=== PATIENT | female | born 1950 | race Caucasian/White ===

== ENCOUNTER → 2018-06-01 12:51 | Outpatient (CLI) | payer MEDICARE, MEDICAID, SELFPAY ==
--- NOTE | 2018-06-01 12:54 | FL_ITS ---
FL barium swallow modified Ordering Physician: Deric Vu Patient Age: 67 years: Female HISTORY: ITS.REASON: DIFFICULTY SWALLOWING TECHNIQUE: FL barium swallow modified INDICATION: ITS.REASON: DIFFICULTY SWALLOWING dysphagia Aspiration history. On nectar consistency diet currently TECHNIQUE & FINDINGS: Study performed conjunction with these pathologist Erendira dent. 1 minute 58 seconds fluoroscopy Patient study the lateral projection with video esophagram recording. Various barium consistencies utilized to study swallowing mechanism. . Thin liquid by cup and straw. Pureed food. Ground food. Pudding. Mixed density. Meat Clerk film revealed: Generous anterior marginal osteophytes throughout the C-spine from C3 through C7. But these may impinge upon the esophagus and could contribute to symptoms or present... Thin barium from cup, and with straw: No aspiration observed good strength the swallowing mechanism .. Noted piriform sinus retention noted with initial bolus of thin liquids via open cup.. This seemed to improve subsequently IMPRESSION: Slight premature spillage into the laryngeal vestibule but no aspiration. Only slight initial retention of thin liquid at piriform sinuses and initially noted, but this improved subsequent No jordi aspiration.. Please see review recommendations from speech pathology Speech pathologist recommended Thin liquid should be given by straw Mixed consistencies are not recommended
== END ==
PROVIDERS: Family Provider Internal Medicine Adolescent Medicine; PCP Family Medicine; Visit Provider Family Medicine
DX: R13.10 Dysphagia, unspecified (principal)
CPT/HCPCS: 70371; 92611

== ENCOUNTER → 2018-09-23 13:09 | Outpatient (CLI) | payer MEDICARE, MEDICAID, SELFPAY ==
--- NOTE | 2018-09-23 13:14 | XR_ITS ---
XR knee LT 3V HISTORY: Pain ITS.REASON: 4 views weightbearing ORDERING PHYSICIAN: Pardeep Henderson MD PATIENT AGE: 67 years COMPARISON: None FINDINGS: The patient was unable to do weightbearing views. No fracture or dislocation. No lytic or blastic change. Normal mineralization. No significant arthritic changes evident. No other significant findings IMPRESSION: Negative Knee
--- NOTE | 2018-09-23 13:14 | XR_ITS ---
XR knee RT 3V HISTORY: Knee pain ITS.REASON: 4 views weightbearing ORDERING PHYSICIAN: Pardeep Henderson MD PATIENT AGE: 67 years COMPARISON: None FINDINGS: Patient was unable to do weightbearing views No fracture or dislocation. No lytic or blastic change. Normal mineralization. No significant arthritic changes evident. There is minimal chondrocalcinosis of the medial and lateral compartment. IMPRESSION: Minimal chondrocalcinosis otherwise negative right knee
--- NOTE | 2018-09-23 16:26 | XR_ITS ---
XR clavicle RT HISTORY: Follow-up fracture ITS.REASON: right clavicle fracture ORDERING PHYSICIAN: Pardeep Henderson MD PATIENT AGE: 67 years COMPARISON: 08/26/2018 FINDINGS: There is a healing fracture involving the distal aspect of the clavicle. There is minimal superior displacement of the distal fracture fragment x 4 mm which is slightly increased since the previous exam previously measuring 2 mm. Fracture line is less well delineated which may be due to early healing. There are mild osteoarthritic changes of the right glenohumeral joint. IMPRESSION: Healing distal clavicular fracture with slight increased superior displacement of the distal fracture fragment
== END ==
PROVIDERS: PCP Family Medicine; Visit Provider Orthopaedic Surgery
DX: S42.034A Nondisplaced fracture of lateral end of right clavicle, initial encounter for closed fracture (principal); M25.562 Pain in left knee; M25.561 Pain in right knee
CPT/HCPCS: 73000; 73562

== ENCOUNTER → 2018-10-15 10:00 | Outpatient (CLI) | payer MEDICARE, MEDICAID, SELFPAY ==
--- NOTE | 2018-10-15 10:04 | XR_ITS ---
XR clavicle RT HISTORY: Follow-up fracture ITS.REASON: right clavicle fracture / xrays out of splint ! ORDERING PHYSICIAN: Pardeep Henderson MD PATIENT AGE: 67 years COMPARISON: 09/23/2018 FINDINGS: Comminuted minimally displaced fracture once again noted involving the distal aspect of the clavicle with no significant change in the good alignment and minimal displacement. There does appear to be some increasing callus formation. Incidental note made of subacromial stenosis and osteoarthritis of the glenohumeral joint. IMPRESSION: Healing distal clavicle fracture with good alignment
== END ==
PROVIDERS: PCP Family Medicine; Visit Provider Orthopaedic Surgery
DX: S42.001A Fracture of unspecified part of right clavicle, initial encounter for closed fracture (principal)
CPT/HCPCS: 73000

== ENCOUNTER → 2018-11-25 09:33 | Outpatient (CLI) | payer MEDICARE, MEDICAID, SELFPAY ==
--- NOTE | 2018-11-25 09:39 | XR_ITS ---
XR clavicle RT HISTORY: Follow-up fracture ITS.REASON: follow up right clavicle fracture ORDERING PHYSICIAN: Pardeep Henderson MD PATIENT AGE: 67 years COMPARISON: 10/15/2018 FINDINGS: Mildly displaced fracture once again noted involving the distal aspect of the clavicle with distraction of the fracture fragments x 7 mm. This is slightly increased when compared to the previous exam. There is some calcification inferior to the fracture site. There remains good alignment. IMPRESSION: Slight increased distraction of the distal fracture fragment of the clavicle
== END ==
PROVIDERS: PCP Family Medicine; Visit Provider Orthopaedic Surgery
DX: S42.001A Fracture of unspecified part of right clavicle, initial encounter for closed fracture (principal)
CPT/HCPCS: 73000

== ENCOUNTER → 2019-03-30 08:48 | Outpatient (CLI) | payer MEDICARE, MEDICAID, SELFPAY ==
--- NOTE | 2019-03-30 08:54 | XR_ITS ---
XR knee LT 2V HISTORY: Standing AP and lateral views are obtained and compared to 09/23/2018 ORDERING PHYSICIAN: Pardeep Henderson MD PATIENT AGE: 68 years COMPARISON: 09/23/2018 FINDINGS: Minimal osteoarthritic changes are present at the medial compartment with minimal chondrocalcinosis medially. No fracture or dislocation. IMPRESSION: Minimal osteoarthritis with chondrocalcinosis of the medial compartment
--- NOTE | 2019-03-30 08:54 | XR_ITS ---
XR knee RT 2V HISTORY: Standing AP and lateral views ORDERING PHYSICIAN: Pardeep Henderson MD PATIENT AGE: 68 years COMPARISON: 09/23/2018 FINDINGS: Mild osteoarthritic changes are present at the medial compartment. There is chondrocalcinosis of the medial and lateral compartment. No fracture or dislocation. No significant change. IMPRESSION: Mild osteoarthritis with chondrocalcinosis
== END ==
PROVIDERS: PCP Family Medicine; Visit Provider Orthopaedic Surgery
DX: M17.11 Unilateral primary osteoarthritis, right knee (principal); M17.12 Unilateral primary osteoarthritis, left knee
CPT/HCPCS: 73560

== ENCOUNTER 2019-05-06 13:34 | Inpatient (IN) ==
--- NOTE | 2019-05-06 14:46 | Emergency Department Note ---
ED Disposition Clinical Impression: Small bowel obstruction, partial Disposition: Admitted As Inpatient Condition on Discharge: Serious Referrals: Provider,Referral, [Primary Care Provider] - Time of Disposition: 17:17 - Critical Care Critical Care Time: No Attestation: On 05/06/19, the high probability of a clinically significant, sudden or life threatening deterioration of the following system(s) required my full and direct attention, intervention and personal management. The time I documented below is in addition to time spent performing reported procedures but includes the following listed in this critical care notation. Medical Decision Making - Medical Records Medical records reviewed: Yes: I reviewed the patient's medical records. - Wong Inquiry Pt receiving controlled substance: No Wong was queried for this patient: No Vital Signs: 05/06/19 13:37 05/06/19 16:04 05/06/19 16:44 Temperature 98.0 F Temperature Source Oral Pulse Rate [Right Brachial] 81 78 73 Respiratory Rate 18 18 Blood Pressure [Right Arm] 156/74 H 91/51 L 90/53 L Blood Pressure Mean [Right Arm] 101 64 65 Blood Pressure Source [Right Arm] Automatic Cuff Automatic Cuff Blood Pressure Position [Right Arm] Sitting Sitting 02 Sat by Pulse Oximetry 100 88 L 98 Oxygen Delivery Method Room Air Room Air - Lab Data Lab results reviewed: Yes: I reviewed the patient's lab results. Lab Results 05/06/19 14:15: Sodium 144, Potassium 4.9, Chloride 101, Carbon Dioxide 32, Anion Gap 15.9 H, BUN 47 H, Creatinine 2.54 H, Estimated Creat Clear 27, Estimated GFR 19 L*, Est GFR ( Amer) 23 L, Glucose 126 H, Calcium 8.9, Total Bilirubin 0.4, AST 22, ALT 35, Alkaline Phosphatase 116, Troponin I < 0.02, Total Protein 7.5, Albumin 3.6, Globulin 3.9 H, Albumin/Globulin Ratio 0.9 L 05/06/19 14:49: WBC 12.8 H, RBC 4.04 L, Hgb 11.5 L, Hct 35.7 L, MCV 88.4, MCH 28.4, MCHC 32.1, RDW 12.7, Plt Count 342, MPV 7.1 L, Neut % (Auto) 85.3 H, Lymph % (Auto) 7.5 L, [place] % (Auto) 4.9, Eos % (Auto) 1.9, Baso % (Auto) 0.3, Neut # (Auto) 10.9 H, Lymph # (Auto) 1.0, [place] # (Auto) 0.6, Eos # (Auto) 0.2, Baso # (Auto) 0.0, Total Counted 100, Neutrophils % (Manual) 83 H, Band Neutrophils % 1.0, Lymphocytes % (Manual) 9 L, Atypical Lymphs % 1.0, Monocytes % (Manual) 4, Eosinophils % (Manual) 2, Platelet Estimate Normal, RBC Morphology Normal 05/06/19 15:15: Lactate 1.2 Result diagrams: 05/06/19 14:49 05/06/19 14:15 Orders (Tests/Meds): ED MEDICATIONS Generic Name Dose Route Start Last Admin Trade Name Freq PRN Reason Stop Dose Admin Sodium Chloride 1,000 mls @ 999 mls/hr 05/06/19 16:15 05/06/19 16:37 Sod Chlor 0.9% 1000ml Bag IV 05/06/19 17:15 999 mls/hr .Q1H1M YING Administration Discontinued Medications Generic Name Dose Route Start Last Admin Trade Name Freq PRN Reason Stop Dose Admin Ketorolac Tromethamine 30 mg 05/06/19 14:51 05/06/19 15:38 Toradol 30mg/Ml Vial IV 05/06/19 14:52 30 mg ONCE ONE Administration Ondansetron HCl 4 mg 05/06/19 14:51 05/06/19 15:38 Zofran 4mg/2ml Vial IV 05/06/19 14:52 4 mg ONCE ONE Administration ORDERS Category Date Time Status UA [Urinalysis and Microscopic] Stat Lab 05/06/19 13:38 Ordered - Physician Consults Physician Consulted: alanis Time: 17:15 Reason -: Admission, Pt condition Nausea/Vomiting/Diarrhea HPI - General Chief complaint: Nausea/Vomiting/Diarrhea Stated complaint: N/v Time Seen by Provider: 05/06/19 14:33 Mode of Arrival: EMS Source of Information: Patient, EMS Limitations: No Limitations Description of Symptoms (Recalled from ER Triage Doc. by RN): nausea/vomiting, flank pain - History of Present Illness HPI Narrative: n/v/greenish vomiting. Patient is communicative but it is very limited secondary to stroke - Related Data Home Medications Medication Instructions Recorded Confirmed Amlodipine Besylate [Amlodipine 10 mg PO DAILY 07/28/18 03/30/19 10mg Tab] Atorvastatin Calcium [Atorvastatin 40 mg PO DAILY 07/28/18 03/30/19 40mg Tab] Docusate Sodium [Colace] 100 mg PO DAILY 07/28/18 03/30/19 Furosemide [Furosemide 20mg Tab] 20 mg PO DAILY 07/28/18 03/30/19 Gabapentin [Neurontin 800mg Tab] 800 mg PO QID 07/28/18 03/30/19 Lisinopril [Lisinopril 10mg Tab] 10 mg PO DAILY 07/28/18 03/30/19 Loratadine [Claritin] 10 mg PO DAILY 07/28/18 03/30/19 Omeprazole [Omeprazole 20mg 20 mg PO DAILY 07/28/18 03/30/19 Capsule] PHENobarbital [PHENobarbital 64.8 mg PO DAILY 07/28/18 03/30/19 32.4mg Tablet] Sennosides [Senna] 8.6 mg PO DAILY 07/28/18 03/30/19 Sertraline HCl [Zoloft] 100 mg PO DAILY 07/28/18 03/30/19 carBAMazepine [carBAMazepine 200mg 400 mg PO BID 07/28/18 03/30/19 Tablet] levETIRAcetam [Levetiracetam] 1,000 mg PO BID 07/28/18 03/30/19 Acetaminophen [Tylenol 500mg 500 mg PO QID PRN 08/26/18 03/30/19 tablet] Ibuprofen [Motrin 600mg 600 mg PO BID 08/26/18 03/30/19 Tablet] Icosapent Ethyl [Vascepa] 2 cap PO BID 08/26/18 03/30/19 Lactulose [Lactulose 20gm/30ml 20 gm PO DAILYP PRN 08/26/18 03/30/19 Oral Soln] Allergies Allergy/AdvReac Type Severity Reaction Status Date / Time LATEX Allergy Mild Uncoded 03/30/19 09:39 BANANAS (FOOD) Allergy Unknown Uncoded 03/30/19 09:39 CHOCOLATE Allergy Unknown Uncoded 03/30/19 09:39 [facility] History - Hepatitis A Screen Drug use history?: No High risk sexual behaviors?: No History of sexually transmitted infection?: No Currently employed?: No Childcare worker?: No Do you have indoor plumbing?: Yes Do you have electricity?: Yes Attestation statement:: This patient has been screened for Hepatitis A risk factors. I have reviewed the patient's past medical history: Yes Medical History: Reports:: Anxiety, Chronic Obstructive Pulmonary Disease (COPD), Hypertension Other Surgeries: Yes: Other Comment: Unable to determine. - Social History Educational Level: Completed High School Smoking Status: Current every day smoker Alcohol Intake: never Occupational Status: employed, unemployed, retired, disabled Housing: [facility] Household Members: none, other - Psychiatric History Expresses thoughts of harming self/others: None Suicide Plan Description: No Plan Pschychiatric History:: Reports:: Anxiety Family Hx:: No significant family history ROS Obtained: Yes All systems reviewed & no additional complaints, Yes unobtainable due to mental condition - Constitutional Constitutional: Denies fever(s) - Eyes Eyes: Denies blurry vision, Denies change in vision - ENT Ears, Nose, Mouth, and Throat: Denies sinus pain, Denies sinus pressure, Denies sore throat - Cardiovascular Cardiovascular: Denies chest pain - Respiratory Respiratory: No cough, No dyspnea, No dyspnea on exertion - Gastrointestinal Gastrointestingal: Reports: abdominal pain, nausea, vomiting. Denies: diarrhea, vomiting blood - Musculoskeletal Musculoskeletal: Denies joint swelling - Integumentary/Breasts Skin/Breast: Denies rash, Denies skin pain - Neurologic Neurologic: Denies tingling/numbness/burning sensations, Denies sensory deficit, Denies syncope, Denies weakness Physical Exam - General General appearance: alert - Head Head exam: atraumatic, normocephalic, normal inspection - Eye Eye exam: Present: normal appearance, PERRL, EOMI - Neck Neck exam: Present: normal inspection, full ROM, trachea midline. Absent: menin gismus, lymphadenopathy - Chest Chest inspection: Present: normal inspection, symmetric chest wall rise. Absent: tenderness - Respiratory Respiratory exam: Present: normal lung sounds bilaterally. Absent: respiratory distress - Cardiovascular Cardiovascular exam: Present: regular rate, normal rhythm. Absent: JVD - Abdominal Exam Abdominal exam: Present: soft, distention, tenderness, mass. Absent: guarding Abdominal tenderness: Present: suprapubic Comment: ? hernia ? incarcerated - Extremities Exam Extremities exam: Present: normal inspection, full ROM, normal capillary refill. Absent: calf tenderness - Back Exam Back exam: Present: normal inspection. Absent: tenderness - Neurological Exam Neurological exam: Present: alert. Absent: oriented X3 - Psychiatric Psychiatric exam: Present: normal affect, normal mood - Skin Skin exam: Present: warm, dry, intact, normal color
[2019-05-06 14:52] LABS: Alanine Aminotransferase 35 U/L (12-78); Albumin Level 3.6 gm/dL (3.4-5.0); Albumin/Globulin Ratio 0.9 (1.1-1.8); Alkaline Phosphatase 116 U/L (46-116); Anion Gap 15.9 mEq/L (5-15); Aspartate Amino Transferase 22 U/L (15-37); Bilirubin,Total 0.4 mg/dL (0.2-1.0); Blood Urea Nitrogen 47 mg/dL (7-18); Calcium 8.9 mg/dL (8.5-10.1); Carbon Dioxide 32 mmol/L (21.0-32.0); Chloride 101 mmol/L (98-107); Globulin 3.9 gm/dl (1.3-3.2); Glucose 126 mg/dL (74-106); Sodium 144 mmol/L (136-145); Total Protein,Serum 7.5 gm/dL (6.4-8.2)
[2019-05-06 15:00] LABS: Basophils % 0.3 % (0.1-2.0); Eosinophils # 0.2 K/mm3 (0.0-0.4); Eosinophils % 1.9 % (0.1-12.0); Hematocrit 35.7 % (37.0-47.0); Hemoglobin 11.5 g/dL (12.2-16.2); Lymphocytes % 7.5 % (10-50); Mean Corpuscular HGB Conc 32.1 g/dL (31.8-35.4); Mean Corpuscular Volume 88.4 fl (81-99); Mean Platelet Volume 7.1 fl (7.4-10.4); Monocytes # 0.6 K/mm3 (0.1-1.0); Monocytes % 4.9 % (1.7-9.3); Neutrophils # 10.9 K/mm3 (1.8-7.8); Neutrophils % 85.3 % (37.0-80.0); Platelet Count 342 K/mm3 (142-424); Red Blood Count 4.04 M/mm3 (4.20-5.40); Red Cell Distribution Width 12.7 % (11.5-17.5); White Blood Count 12.8 K/mm3 (4.8-10.8)
[2019-05-06 15:14] LABS: Eosinophils % 2 % (0-3); Lymphocytes % 9 % (10-50); Monocytes % 4 % (2-9); Neutrophils % 83 % (42-76); RBC Morphology Normal; Total Cells Counted 100
[2019-05-06 18:04] LABS: Appearance,Urine CLEAR (Clear); Bilirubin,Urine Negative (Negative); Blood, Urine Negative (Negative); Color,Urine YELLOW (Yellow); Glucose,Urine (UA) Negative (Negative); Ketones,Urine TRACE (Negative); Leukocyte Esterase,Urine Negative (Negative); Microscopic, Urine URINE MICROSCOPIC (MICROSCOPIC); PH,Urine 5.5 (5.0-8.5); Protein,Urine Negative (Negative); Urobilinogen,Urine 0.2 EU/dl (0.2)
[2019-05-06 18:28] LABS: Amorphous Sediment,Urine Trace /lpf; Bacteria,Urine Trace /lpf
--- NOTE | 2019-05-06 19:11 | Consult Report ---
*Admission Date: 05/06/19 *Reason for consult:: Bowel Obstruction *History of present illness: Patient is a 68-year-old white female with reported history of cerebral palsy, seizure disorder, cognitive deficit who is a longtime resident of [facility]. She was transported to the emergency department this afternoon due to vomiting for a couple of days. Evaluation in the emergency department included noncontrast CT scan which revealed findings consistent with possible bowel obstruction. This is characterized by massively distended stomach and duodenum with appreciable dilatation of proximal small bowel with possible transition point in the mid small bowel in the left lower quadrant. She was admitted for inpatient management and surgical consultation. Review of Systems - Review of Systems Review of systems:: unable to obtain - *Neurologic Denies tingling/numbness/burning sensations, Denies sensory deficit, Denies fainting, Denies weakness [facility] History Medical History: Reports:: Anxiety, Chronic Obstructive Pulmonary Disease (COPD), Congenital Heart Disease, Hyperlipidemia, Hypertension *Have you ever received a pneumonia vaccine?: No (unable to find in medical record) *Have you received a flu vaccine this season?: No (unable to find in medical record) Other Surgeries: Yes: Other - *Social History Educational Level: Completed High School Smoking Status: Never smoker Alcohol Intake: never *Occupational Status:: employed, unemployed, retired, disabled Housing: [facility] Household Members: none, other *Travel in the last 8 weeks: None - Psychiatric History Expresses thoughts of harming self/others: None Suicide Plan Description: No Plan Pschychiatric History:: Reports:: Anxiety Family Hx:: Unable to obtain Meds Home Medications Medication Instructions Recorded Confirmed Type Amlodipine Besylate [Amlodipine 10 mg PO DAILY 07/28/18 05/06/19 History 10mg Tab] Atorvastatin Calcium [Atorvastatin 40 mg PO DAILY 07/28/18 05/06/19 History 40mg Tab] Docusate Sodium [Colace] 100 mg PO DAILY 07/28/18 05/06/19 History Furosemide [Furosemide 20mg Tab] 20 mg PO DAILY 07/28/18 05/06/19 History Gabapentin [Neurontin 800mg Tab] 800 mg PO QID 07/28/18 05/06/19 History Lisinopril [Lisinopril 10mg Tab] 10 mg PO DAILY 07/28/18 05/06/19 History Loratadine [Claritin] 10 mg PO DAILY 07/28/18 05/06/19 History Omeprazole [Omeprazole 20mg 20 mg PO QODHS 07/28/18 05/06/19 History Capsule] PHENobarbital [PHENobarbital 64.8 mg PO DAILY 07/28/18 05/06/19 History 32.4mg Tablet] Sennosides [Senna] 8.6 mg PO DAILY 07/28/18 05/06/19 History Sertraline HCl [Zoloft] 100 mg PO DAILY 07/28/18 05/06/19 History carBAMazepine [carBAMazepine 200mg 400 mg PO BID 07/28/18 05/06/19 History Tablet] levETIRAcetam [Levetiracetam] 1,000 mg PO BID 07/28/18 05/06/19 History Acetaminophen [Tylenol 500mg 500 mg PO QID PRN 08/26/18 05/06/19 History tablet] Ibuprofen [Motrin 600mg 600 mg PO BID 08/26/18 05/06/19 History Tablet] Lactulose [Lactulose 20gm/30ml 20 gm PO DAILYP PRN 08/26/18 05/06/19 History Oral Soln] Calcium Carbonate/Vitamin D3 1 each PO DAILY 05/06/19 05/06/19 History [Oyster Shell 250-Vit D3 125 Tb] Carboxymethyl/Gly/Poly80/Pf 1 each OP BID 05/06/19 05/06/19 History [Refresh Optive Advanced Drops] Icosapent Ethyl [Vascepa] 2 cap PO BID 05/06/19 05/06/19 History Miscellaneous [Unknown Home 1 tab PO CONSULT PHARMACY 05/06/19 05/06/19 History Medication] Propylene Glycol/Peg 400 [Systane 2 drp OP HS 05/06/19 05/06/19 History Gel Eye Drops] Sennosides [Senna] 8.6 mg PO DAILYP PRN 05/06/19 05/06/19 History hydrOXYzine HCl [Hydroxyzine HCl] 25 mg PO TID 05/06/19 05/06/19 History Allergies Allergy/AdvReac Type Severity Reaction Status Date / Time LATEX Allergy Mild Uncoded 03/30/19 09:39 BANANAS (FOOD) Allergy Unknown Uncoded 05/15/19 09:39 CHOCOLATE Allergy Unknown Uncoded 03/30/19 09:39 Exam Vital signs and Labs for Last 24 Hours: Temp Pulse Resp BP Pulse Ox 97.7 F 94 H 16 152/78 H 94 L 05/06/19 18:14 05/06/19 18:14 05/06/19 18:14 05/06/19 18:14 05/06/19 18:14 Laboratory Results - last 24 hr 05/06/19 14:15: Sodium 144, Potassium 4.9, Chloride 101, Carbon Dioxide 32, Anion Gap 15.9 H, BUN 47 H, Creatinine 2.54 H, Estimated Creat Clear 27, Estimated GFR 19 L*, Est GFR ( Amer) 23 L, Glucose 126 H, Calcium 8.9, Total Bilirubin 0.4, AST 22, ALT 35, Alkaline Phosphatase 116, Troponin I < 0.02, Total Protein 7.5, Albumin 3.6, Globulin 3.9 H, Albumin/Globulin Ratio 0.9 L 05/06/19 14:49: WBC 12.8 H, RBC 4.04 L, Hgb 11.5 L, Hct 35.7 L, MCV 88.4, MCH 28.4, MCHC 32.1, RDW 12.7, Plt Count 342, MPV 7.1 L, Neut % (Auto) 85.3 H, Lymph % (Auto) 7.5 L, [place] % (Auto) 4.9, Eos % (Auto) 1.9, Baso % (Auto) 0.3, Neut # (Auto) 10.9 H, Lymph # (Auto) 1.0, [place] # (Auto) 0.6, Eos # (Auto) 0.2, Baso # (Auto) 0.0, Total Counted 100, Neutrophils % (Manual) 83 H, Band Neutrophils % 1.0, Lymphocytes % (Manual) 9 L, Atypical Lymphs % 1.0, Monocytes % (Manual) 4, Eosinophils % (Manual) 2, Platelet Estimate Normal, RBC Morphology Normal 05/06/19 15:15: Lactate 1.2 05/06/19 17:53: Urine Color Yellow, Urine Appearance Clear, Urine pH 5.5, Ur Specific [place] 1.020, Urine Protein Negative, Urine Glucose (UA) Negative, Urine Ketones Trace, Urine Blood Negative, Urine Nitrate Negative, Urine Bilirubin Negative, Urine Urobilinogen 0.2, Ur Leukocyte Esterase Negative, Urine WBC 3-5, Ur Squamous Epith Cells 5-10, Amorphous Sediment Trace, Urine Bacteria Trace I & O for Last 24 hours: Intake & Output 05/04/19 05/05/19 05/06/19 05/07/19 11:59 11:59 11:59 11:59 Output Total 600 / 600 Balance -600 / -600 Weight 159 lb 4 oz - *Routine HEENT Exam Head: Present: normocephalic Eye: Present: EOMI, PERRL ENT: Present: mucous membranes moist - *Routine Neck Exam Present: supple. Absent: lymphadenopathy - *Routine Respiratory Exam Present: CTA bilaterally - *Routine Cardiovascular Exam Present: RRR - *Routine Abdominal Exam Present: soft, tenderness Comments: Mild distention, hypoactive bowel sounds, some diffuse tenderness. Very low limited midline well-healed scar. - *Routine Extremities Exam Absent: cyanosis, clubbing, edema - *Routine Skin Exam Present: pallor, warm. Absent: rash - *Routine Neurological Exam Present: alert - Detailed Eye Exam Eyelids: Left normal inspection Results - Labs 05/06/19 14:49 05/06/19 14:15 Laboratory Results - last 24 hr 05/06/19 14:15: Sodium 144, Potassium 4.9, Chloride 101, Carbon Dioxide 32, Anion Gap 15.9 H, BUN 47 H, Creatinine 2.54 H, Estimated Creat Clear 27, Estimated GFR 19 L*, Est GFR ( Amer) 23 L, Glucose 126 H, Calcium 8.9, Total Bilirubin 0.4, AST 22, ALT 35, Alkaline Phosphatase 116, Troponin I < 0.02, Total Protein 7.5, Albumin 3.6, Globulin 3.9 H, Albumin/Globulin Ratio 0.9 L 05/06/19 14:49: WBC 12.8 H, RBC 4.04 L, Hgb 11.5 L, Hct 35.7 L, MCV 88.4, MCH 28.4, MCHC 32.1, RDW 12.7, Plt Count 342, MPV 7.1 L, Neut % (Auto) 85.3 H, Lymph % (Auto) 7.5 L, [place] % (Auto) 4.9, Eos % (Auto) 1.9, Baso % (Auto) 0.3, Neut # (Auto) 10.9 H, Lymph # (Auto) 1.0, [place] # (Auto) 0.6, Eos # (Auto) 0.2, Baso # (Auto) 0.0, Total Counted 100, Neutrophils % (Manual) 83 H, Band Neutrophils % 1.0, Lymphocytes % (Manual) 9 L, Atypical Lymphs % 1.0, Monocytes % (Manual) 4, Eosinophils % (Manual) 2, Platelet Estimate Normal, RBC Morphology Normal 05/06/19 15:15: Lactate 1.2 05/06/19 17:53: Urine Color Yellow, Urine Appearance Clear, Urine pH 5.5, Ur Specific [place] 1.020, Urine Protein Negative, Urine Glucose (UA) Negative, Urine Ketones Trace, Urine Blood Negative, Urine Nitrate Negative, Urine Bilirubin Negative, Urine Urobilinogen 0.2, Ur Leukocyte Esterase Negative, Urine WBC 3-5, Ur Squamous Epith Cells 5-10, Amorphous Sediment Trace, Urine Bacteria Trace Assessment and Plan - Assessment and plan all Dx Assessment and Plan for all problems:: Patient has had nasogastric tube placed with appreciable amount of drainage, 600 cc over the last hour. Recommend continuation of nasogastric decompression. Replace fluids and electrolytes that she show signs of dehydration and renal insufficiency. Plan to check abdominal x-ray for confirmation of appropriate NG tube placement. Continue serial abdominal exams. Hopefully this improves with nonoperative management. Etiology unclear as the surgical history is unclear however she does have a low suprapubic scar, possibly from previous pelvic surgery. If her symptoms do not improve surgical intervention may be necessary.
[2019-05-07 06:40] LABS: Anion Gap 16.4 mEq/L (5-15)
[2019-05-07 06:47] LABS: Basophils % 0.4 % (0.1-2.0); Lymphocytes % 15.6 % (10-50); Red Cell Distribution Width 12.6 % (11.5-17.5)
[2019-05-07 06:50] LABS: Calcium 7.7 mg/dL (8.5-10.1); Eosinophils # 0.2 K/mm3 (0.0-0.4); Eosinophils % 2.6 % (0.1-12.0); Mean Corpuscular HGB Conc 32.4 g/dL (31.8-35.4); Mean Corpuscular Volume 88.5 fl (81-99); Mean Platelet Volume 8.2 fl (7.4-10.4); Monocytes # 0.5 K/mm3 (0.1-1.0); Monocytes % 8.1 % (1.7-9.3); Neutrophils # 4.8 K/mm3 (1.8-7.8); Neutrophils % 73.4 % (37.0-80.0); Platelet Count 102 K/mm3 (142-424); Red Blood Count 3.27 M/mm3 (4.20-5.40); White Blood Count 6.5 K/mm3 (4.8-10.8)
[2019-05-07 06:51] LABS: Hemoglobin 9.4 g/dL (12.2-16.2)
--- NOTE | 2019-05-07 07:47 | History & Physical Report ---
*Admission Date: 05/06/19 *Chief complaint: Vomiting, abdominal pain *History of present illness: Patient is a 68-year-old white female with reported history of cerebral palsy, seizure disorder, cognitive deficit who is a longtime resident of [facility]. She was transported to the emergency department this afternoon due to vomiting for a couple of days. Evaluation in the emergency department included noncontrast CT scan which revealed findings consistent with possible bowel obstruction. This is characterized by massively distended stomach and duodenum with appreciable dilatation of proximal small bowel with possible transition point in the mid small bowel in the left lower quadrant. She was admitted for inpatient management and surgical consultation. Although patient is nonverbal she is able to communicate somewhat with shaking of her head and nonverbal communication. This morning she indicates that her pain is still present. [facility] History I have reviewed the patient's past medical history: Yes Medical History: Reports:: Anxiety, Chronic Obstructive Pulmonary Disease (COPD), Congenital Heart Disease, Hyperlipidemia, Hypertension *Have you ever received a pneumonia vaccine?: No (unable to find in medical record) *Have you received a flu vaccine this season?: No (unable to find in medical record) Other Surgeries: Yes: Other - *Social History Educational Level: Completed High School Smoking Status: Never smoker Alcohol Intake: never *Occupational Status:: employed, unemployed, retired, disabled Housing: halfway Household Members: none, other *Travel in the last 8 weeks: None - Psychiatric History Expresses thoughts of harming self/others: None Suicide Plan Description: No Plan Pschychiatric History:: Reports:: Anxiety Family Hx:: Unable to obtain Review of Systems - Review of Systems Review of systems:: unable to obtain - *Neurologic Denies tingling/numbness/burning sensations, Denies sensory deficit, Denies fainting, Denies weakness Meds Home Medications Medication Instructions Recorded Confirmed Type Amlodipine Besylate [Amlodipine 10 mg PO DAILY 07/28/18 05/06/19 History 10mg Tab] Atorvastatin Calcium [Atorvastatin 40 mg PO DAILY 07/28/18 05/06/19 History 40mg Tab] Docusate Sodium [Colace] 100 mg PO DAILY 07/28/18 05/06/19 History Furosemide [Furosemide 20mg Tab] 20 mg PO DAILY 07/28/18 05/06/19 History Gabapentin [Neurontin 800mg Tab] 800 mg PO QID 07/28/18 05/06/19 History Lisinopril [Lisinopril 10mg Tab] 10 mg PO DAILY 07/28/18 05/06/19 History Loratadine [Claritin] 10 mg PO DAILY 07/28/18 05/06/19 History Omeprazole [Omeprazole 20mg 20 mg PO QODHS 07/28/18 05/06/19 History Capsule] PHENobarbital [PHENobarbital 64.8 mg PO DAILY 07/28/18 05/06/19 History 32.4mg Tablet] Sennosides [Senna] 8.6 mg PO DAILY 07/28/18 05/06/19 History Sertraline HCl [Zoloft] 100 mg PO DAILY 07/28/18 05/06/19 History carBAMazepine [carBAMazepine 200mg 400 mg PO BID 07/28/18 05/06/19 History Tablet] levETIRAcetam [Levetiracetam] 1,000 mg PO BID 07/28/18 05/06/19 History Acetaminophen [Tylenol 500mg 500 mg PO QID PRN 08/26/18 05/06/19 History tablet] Ibuprofen [Motrin 600mg 600 mg PO BID 08/26/18 05/06/19 History Tablet] Lactulose [Lactulose 20gm/30ml 20 gm PO DAILYP PRN 08/26/18 05/06/19 History Oral Soln] Calcium Carbonate/Vitamin D3 1 each PO DAILY 05/06/19 05/06/19 History [Oyster Shell 250-Vit D3 125 Tb] Carboxymethyl/Gly/Poly80/Pf 1 each OP BID 05/06/19 05/06/19 History [Refresh Optive Advanced Drops] Icosapent Ethyl [Vascepa] 2 cap PO BID 05/06/19 05/06/19 History Miscellaneous [Unknown Home 1 tab PO CONSULT PHARMACY 05/06/19 05/06/19 History Medication] Propylene Glycol/Peg 400 [Systane 2 drp OP HS 05/06/19 05/06/19 History Gel Eye Drops] Sennosides [Senna] 8.6 mg PO DAILYP PRN 05/06/19 05/06/19 History hydrOXYzine HCl [Hydroxyzine HCl] 25 mg PO TID 05/06/19 05/06/19 History Allergies Allergy/AdvReac Type Severity Reaction Status Date / Time LATEX Allergy Mild Uncoded 03/30/19 09:39 BANANAS (FOOD) Allergy Unknown Uncoded 03/30/19 09:39 CHOCOLATE Allergy Unknown Uncoded 03/30/19 09:39 Exam Vital signs and Labs for Last 24 Hours: Temp Pulse Resp BP Pulse Ox 98.5 F 85 20 105/49 L 92 L 05/07/19 04:35 05/07/19 04:35 05/07/19 04:35 05/07/19 04:35 05/07/19 04:35 Laboratory Results - last 24 hr 05/06/19 14:15: Sodium 144, Potassium 4.9, Chloride 101, Carbon Dioxide 32, Anion Gap 15.9 H, BUN 47 H, Creatinine 2.54 H, Estimated Creat Clear 27, Estimated GFR 19 L*, Est GFR ( Amer) 23 L, Glucose 126 H, Calcium 8.9, Total Bilirubin 0.4, AST 22, ALT 35, Alkaline Phosphatase 116, Troponin I < 0.02, Total Protein 7.5, Albumin 3.6, Globulin 3.9 H, Albumin/Globulin Ratio 0.9 L 05/06/19 14:49: WBC 12.8 H, RBC 4.04 L, Hgb 11.5 L, Hct 35.7 L, MCV 88.4, MCH 28.4, MCHC 32.1, RDW 12.7, Plt Count 342, MPV 7.1 L, Neut % (Auto) 85.3 H, Lymph % (Auto) 7.5 L, [place] % (Auto) 4.9, Eos % (Auto) 1.9, Baso % (Auto) 0.3, Neut # (Auto) 10.9 H, Lymph # (Auto) 1.0, [place] # (Auto) 0.6, Eos # (Auto) 0.2, Baso # (Auto) 0.0, Total Counted 100, Neutrophils % (Manual) 83 H, Band Neutrophils % 1.0, Lymphocytes % (Manual) 9 L, Atypical Lymphs % 1.0, Monocytes % (Manual) 4, Eosinophils % (Manual) 2, Platelet Estimate Normal, RBC Morphology Normal 05/06/19 15:15: Lactate 1.2 05/06/19 17:53: Urine Color Yellow, Urine Appearance Clear, Urine pH 5.5, Ur Specific [place] 1.020, Urine Protein Negative, Urine Glucose (UA) Negative, [place] Ketones Trace, Urine Blood Negative, Urine Nitrate Negative, Urine Bilirubin Negative, Urine Urobilinogen 0.2, Ur Leukocyte Esterase Negative, Urine WBC 3-5, Ur Squamous Epith Cells 5-10, Amorphous Sediment Trace, Urine Bacteria Trace 05/07/19 05:45: Sodium 144, Potassium 5.4 H, Chloride 106, Carbon Dioxide 27, Anion Gap 16.4 H, BUN 55 H, Creatinine 3.08 H D, Estimated Creat Clear 22, Estimated GFR 15 L*, Est GFR ( Amer) 18 L* D, Glucose 105, Calcium 7.7 L D 05/07/19 05:45: WBC 6.5 D, RBC 3.27 L, Hgb 9.4 L D, Hct 29.0 L, MCV 88.5, MCH 28.7, MCHC 32.4, RDW 12.6, Plt Count 102 L D, MPV 8.2, Neut % (Auto) 73.4, Lymph % (Auto) 15.6, [place] % (Auto) 8.1, Eos % (Auto) 2.6, Baso % (Auto) 0.4, Neut # (Auto) 4.8, Lymph # (Auto) 1.0, [place] # (Auto) 0.5, Eos # (Auto) 0.2, Baso # (Auto) 0.0 I & O for Last 24 hours: Intake & Output 05/04/19 05/05/19 05/06/19 05/07/19 11:59 11:59 11:59 11:59 Intake Total 1783 / 1783 Output Total 850 / 850 Balance 933 / 933 Weight 168 lb 4 oz Narrative: Patient appears chronically ill and has afflicted with contractures and hyperreflexia and rigidity from her well-established diagnosis of cerebral palsy. NG tube in the right nostril, draining dark gastric fluid. Lungs have fairly good air entry in the anterior sin and are clear, heart rate regular. Holosystolic faint murmur noted. Apparently she has a history of congenital heart disease-record deficit. Distal perfusion is poor but symmetric. Neurologic exam markedly abnormal. Abdominal exam is tender but no rebound noted. No guarding. Assessment and Plan (1) Acute kidney injury superimposed on chronic kidney disease Current visit: Yes Status: Acute Category: Medical Code(s): N17.9 - Acute kidney failure, unspecified; N18.9 - Chronic kidney disease, unspecified Creatinine elevation over admission noted, bolus of normal saline this morning in addition to her lactated Ringer's. Watch electrolytes carefully and repeat labs tomorrow. (2) Congenital heart disease Current visit: Yes Status: Acute Category: Medical Code(s): Q24.9 - Congenital malformation of heart, unspecified Record deficit. Murmur noted. Complicates all aspects of her care. (3) Seizure disorder Current visit: Yes Status: Acute Category: Medical Code(s): G40.909 - Epilepsy, unspecified, not intractable, without status epilepticus Currently no seizures here. We will continue her antiepileptic medications, seizure precautions in place. (4) Essential hypertension Current visit: Yes Status: Acute Category: Medical Code(s): I10 - Essential (primary) hypertension Holding antihypertensives now because of kidney injury. Watch blood pressure carefully (5) Bedbound Current visit: Yes Status: Acute Category: Medical Code(s): Z74.01 - Bed confinement status Complicates all aspects of her care (6) Small bowel obstruction, partial Current visit: Yes Status: Acute Category: Medical Code(s): K56.600 - Partial intestinal obstruction, unspecified as to cause Appreciate surgical consultation. Agree with conservative management.
--- NOTE | 2019-05-07 08:43 | Progress Note ---
Subjective Narrative: Patient wants the NG tube out. Still complains of some abdominal discomfort. Exam Vital signs and Labs for Last 24 Hours: Temp Pulse Resp BP Pulse Ox 98.9 F 82 18 138/57 L 96 05/07/19 08:00 05/07/19 08:00 05/07/19 08:00 05/07/19 08:00 05/07/19 08:00 Laboratory Results - last 24 hr 05/06/19 14:15: Sodium 144, Potassium 4.9, Chloride 101, Carbon Dioxide 32, Anion Gap 15.9 H, BUN 47 H, Creatinine 2.54 H, Estimated Creat Clear 27, Estimated GFR 19 L*, Est GFR ( Amer) 23 L, Glucose 126 H, Calcium 8.9, Total Bilirubin 0.4, AST 22, ALT 35, Alkaline Phosphatase 116, Troponin I < 0.02, Total Protein 7.5, Albumin 3.6, Globulin 3.9 H, Albumin/Globulin Ratio 0.9 L 05/06/19 14:49: WBC 12.8 H, RBC 4.04 L, Hgb 11.5 L, Hct 35.7 L, MCV 88.4, MCH 28.4, MCHC 32.1, RDW 12.7, Plt Count 342, MPV 7.1 L, Neut % (Auto) 85.3 H, Lymph % (Auto) 7.5 L, [place] % (Auto) 4.9, Eos % (Auto) 1.9, Baso % (Auto) 0.3, Neut # (Auto) 10.9 H, Lymph # (Auto) 1.0, [place] # (Auto) 0.6, Eos # (Auto) 0.2, Baso # (Auto) 0.0, Total Counted 100, Neutrophils % (Manual) 83 H, Band Neutrophils % 1.0, Lymphocytes % (Manual) 9 L, Atypical Lymphs % 1.0, Monocytes % (Manual) 4, Eosinophils % (Manual) 2, Platelet Estimate Normal, RBC Morphology Normal 05/06/19 15:15: Lactate 1.2 05/06/19 17:53: Urine Color Yellow, Urine Appearance Clear, Urine pH 5.5, Ur Specific [place] 1.020, Urine Protein Negative, Urine Glucose (UA) Negative, Urine Ketones Trace, Urine Blood Negative, Urine Nitrate Negative, Urine Bilirubin Negative, Urine Urobilinogen 0.2, Ur Leukocyte Esterase Negative, Urine WBC 3-5, Ur Squamous Epith Cells 5-10, Amorphous Sediment Trace, Urine Bacteria Trace 05/07/19 05:45: Sodium 144, Potassium 5.4 H, Chloride 106, Carbon Dioxide 27, Anion Gap 16.4 H, BUN 55 H, Creatinine 3.08 H D, Estimated Creat Clear 22, Estimated GFR 15 L*, Est GFR ( Amer) 18 L* D, Glucose 105, Calcium 7.7 L D 05/07/19 05:45: WBC 6.5 D, RBC 3.27 L, Hgb 9.4 L D, Hct 29.0 L, MCV 88.5, MCH 28.7, MCHC 32.4, RDW 12.6, Plt Count 102 L D, MPV 8.2, Neut % (Auto) 73.4, Lymph % (Auto) 15.6, [place] % (Auto) 8.1, Eos % (Auto) 2.6, Baso % (Auto) 0.4, Neut # (Auto) 4.8, Lymph # (Auto) 1.0, [place] # (Auto) 0.5, Eos # (Auto) 0.2, Baso # (Auto) 0.0 I & O for Last 24 hours: Intake & Output 05/04/19 05/05/19 05/06/19 05/07/19 11:59 11:59 11:59 11:59 Intake Total 1783 / 1783 Output Total 850 / 850 Balance 933 / 933 Weight 168 lb 4 oz - *Routine Abdominal Exam Comments: Soft, slightly distended, some tenderness in the lower abdomen without guarding or rebound. No appreciable bowel sounds. Progress Note: A&P (1) Acute kidney injury superimposed on chronic kidney disease Status: Acute Current Visit: Yes (2) Congenital heart disease Status: Acute Current Visit: Yes (3) Seizure disorder Status: Acute Current Visit: Yes (4) Essential hypertension Status: Acute Current Visit: Yes (5) Bedbound Status: Acute Current Visit: Yes (6) Small bowel obstruction, partial Status: Acute Current Visit: Yes Assessment and Plan for All Diagnoses:: Patient had approximately 1 L as of the nasogastric tube after placement. X-ray revealed this to barely be in the cardia of the stomach. It was advanced but then withdrawn somewhat. Will repeat acute abdominal series to assess bowel gas pattern and NG position. Laboratory reveals further increase of creatinine. Potassium 5.4.
--- NOTE | 2019-05-07 10:57 | Pharmacy Consult Notes ---
[facility] Pharmacy VTE Monitoring - Patient Demographics Admission date: 05/07/19 Report Date: 05/07/19 Time: 10:56 Allergies/Adverse Reactions: Patient Allergies LATEX Allergy (Mild, Uncoded 03/30/19 09:39) BANANAS (FOOD) Allergy (Unknown, Uncoded 03/30/19 09:39) CHOCOLATE Allergy (Unknown, Uncoded 03/30/19 09:39) Height: 1.7 m Weight: 76.317 kg Patient Problems: Current Active Problems (Updated 05/07/19 @ 07:47 by Hesham Florian MD) Small bowel obstruction, partial (Acute) Acute kidney injury superimposed on chronic kidney disease (Acute) Congenital heart disease (Acute) Seizure disorder (Acute) Essential hypertension (Acute) Bedbound (Acute) - VTE Risk Labs: VTE Related Lab Results Hgb 9.4 g/dL (12.2-16.2) L D 05/07/19 05:45 Hct 29.0 % (37.0-47.0) L 05/07/19 05:45 Plt Count 102 K/mm3 (142-424) L D 05/07/19 05:45 BUN 55 mg/dL (7-18) H 05/07/19 05:45 Creatinine 3.08 mg/dL (0.55-1.02) H D 05/07/19 05:45 Estimated Creat Clear 22 mL/min (50-200) 05/07/19 05:45 Was VTE Risk Assessment Performed: No VTE Score: 2 VTE Risk Level: Very Low Risk - Prophylaxis Types of VTE Prophylaxis: TEDS Knee High Location of Applied Device: Bilateral Lower Extremeties (MADELINE HOSE ORDERED)
--- NOTE | 2019-05-08 07:03 | Progress Note ---
Subjective Narrative: Patient is a bit more animated this morning. Strongly desiring nasogastric tube removed. Has drained about 600 cc oveR the past shift. Exam Vital signs and Labs for Last 24 Hours: Temp Pulse Resp BP Pulse Ox 99.0 F 90 18 160/69 H 95 05/08/19 04:00 05/08/19 04:00 05/08/19 04:00 05/08/19 04:00 05/08/19 04:00 I & O for Last 24 hours: Intake & Output 05/05/19 05/06/19 05/07/19 05/08/19 11:59 11:59 11:59 11:59 Intake Total 1783 / 1783 3248 / 3248 Output Total 850 / 850 1600 / 1600 Balance 933 / 933 1648 / 1648 Weight 168 lb 4 oz - *Routine Abdominal Exam Present: soft. Absent: tenderness Progress Note: A&P (1) Acute kidney injury superimposed on chronic kidney disease Status: Acute Current Visit: Yes (2) Congenital heart disease Status: Acute Current Visit: Yes (3) Seizure disorder Status: Acute Current Visit: Yes (4) Essential hypertension Status: Acute Current Visit: Yes (5) Bedbound Status: Acute Current Visit: Yes (6) Small bowel obstruction, partial Status: Acute Current Visit: Yes Assessment and Plan for All Diagnoses:: Patient has shown some clinical improvement on examination in mechanical bowel obstruction. Acute abdominal series yesterday showed improvement as well. Given the equivocal status of the bowel obstruction at this point I will plan to obtain a follow-up CT scan today with oral contrast for better delineation. If this shows continued improvement possibly may be able to discontinue the nasogastric tube. However, if there is persistent obstruction surgical intervention may be necessary.
[2019-05-08 08:18] LABS: Basophils % 0.4 % (0.1-2.0); Eosinophils # 0.2 K/mm3 (0.0-0.4); Hematocrit 30.4 % (37.0-47.0); Hemoglobin 9.7 g/dL (12.2-16.2); Lymphocytes # 1.2 K/mm3 (0.7-4.5); Lymphocytes % 15.6 % (10-50); Mean Corpuscular Volume 88.9 fl (81-99); Mean Platelet Volume 7.3 fl (7.4-10.4); Monocytes # 0.6 K/mm3 (0.1-1.0); Monocytes % 8.4 % (1.7-9.3); Neutrophils # 5.5 K/mm3 (1.8-7.8); Neutrophils % 72.6 % (37.0-80.0); Platelet Count 265 K/mm3 (142-424); Red Blood Count 3.42 M/mm3 (4.20-5.40); Red Cell Distribution Width 12.2 % (11.5-17.5); White Blood Count 7.5 K/mm3 (4.8-10.8)
--- NOTE | 2019-05-08 08:58 | Progress Note ---
Internal Medicine - PN: Subj *Date: 05/08/19 *Time: 08:57 Interval history: Patient is more animated, more able to converse with head shakes and nods. Exam Vital signs and Labs for Last 24 Hours: Temp Pulse Resp BP Pulse Ox 98.4 F 94 H 20 175/103 H 96 05/08/19 08:00 05/08/19 08:00 05/08/19 08:00 05/08/19 08:00 05/08/19 08:00 Laboratory Results - last 24 hr 05/08/19 08:05: WBC 7.5, RBC 3.42 L, Hgb 9.7 L, Hct 30.4 L, MCV 88.9, MCH 28.5, MCHC 32.0, RDW 12.2, Plt Count 265 D, MPV 7.3 L, Neut % (Auto) 72.6, Lymph % (Auto) 15.6, [place] % (Auto) 8.4, Eos % (Auto) 3.0, Baso % (Auto) 0.4, Neut # (Auto) 5.5, Lymph # (Auto) 1.2, [place] # (Auto) 0.6, Eos # (Auto) 0.2, Baso # (Auto) 0.0 I & O for Last 24 hours: Intake & Output 05/05/19 05/06/19 05/07/19 05/08/19 11:59 11:59 11:59 11:59 Intake Total 1783 / 1783 3248 / 3248 Output Total 850 / 850 1600 / 1600 Balance 933 / 933 1648 / 1648 Weight 168 lb 4 oz Narrative: Lungs clear, heart rate regular. Abdomen is much softer, vastly improved over yesterday. Assessment and Plan (1) Acute kidney injury superimposed on chronic kidney disease Current visit: Yes Status: Acute Category: Medical Code(s): N17.9 - Acute kidney failure, unspecified; N18.9 - Chronic kidney disease, unspecified (2) Congenital heart disease Current visit: Yes Status: Acute Category: Medical Code(s): Q24.9 - Congenital malformation of heart, unspecified (3) Seizure disorder Current visit: Yes Status: Acute Category: Medical Code(s): G40.909 - Epilepsy, unspecified, not intractable, without status epilepticus (4) Essential hypertension Current visit: Yes Status: Acute Category: Medical Code(s): I10 - Essential (primary) hypertension (5) Bedbound Current visit: Yes Status: Acute Category: Medical Code(s): Z74.01 - Bed confinement status (6) Small bowel obstruction, partial Current visit: Yes Status: Acute Category: Medical Code(s): K56.600 - Partial intestinal obstruction, unspecified as to cause - Assessment and plan all Dx Assessment and Plan for all problems:: Overall improving. Agree with surgeons note regarding NG tube issues. Await labs from this morning.
[2019-05-08 11:11] LABS: Albumin/Globulin Ratio 0.9 (1.1-1.8); Anion Gap 17.7 mEq/L (5-15); Bilirubin,Total 0.5 mg/dL (0.2-1.0); Globulin 3.4 gm/dl (1.3-3.2); Total Protein,Serum 6.4 gm/dL (6.4-8.2)
[2019-05-08 11:19] LABS: Calcium 8.5 mg/dL (8.5-10.1)
[2019-05-09 06:31] LABS: Calcium 8.7 mg/dL (8.5-10.1)
[2019-05-09 06:51] LABS: Basophils % 0.4 % (0.1-2.0); Eosinophils # 0.2 K/mm3 (0.0-0.4); Eosinophils % 2.2 % (0.1-12.0); Hematocrit 29.9 % (37.0-47.0); Hemoglobin 9.7 g/dL (12.2-16.2); Lymphocytes # 1.5 K/mm3 (0.7-4.5); Lymphocytes % 18.4 % (10-50); Mean Corpuscular HGB Conc 32.5 g/dL (31.8-35.4); Mean Corpuscular Volume 87.5 fl (81-99); Mean Platelet Volume 7.8 fl (7.4-10.4); Monocytes # 0.9 K/mm3 (0.1-1.0); Monocytes % 10.8 % (1.7-9.3); Neutrophils # 5.4 K/mm3 (1.8-7.8); Neutrophils % 68.2 % (37.0-80.0); Platelet Count 281 K/mm3 (142-424); Red Blood Count 3.42 M/mm3 (4.20-5.40); Red Cell Distribution Width 12.3 % (11.5-17.5)
--- NOTE | 2019-05-09 07:47 | Progress Note ---
Subjective Narrative: Patient had some bowel movements. CT scan with actual contrast yesterday revealed resolved bowel obstruction with contrast throughout the GI tract. She was started on clear liquid diet yesterday evening. Patient has refused to drink. Exam Vital signs and Labs for Last 24 Hours: Temp Pulse Resp BP Pulse Ox 98.8 F 89 19 161/88 H 94 L 05/09/19 04:00 05/09/19 04:00 05/09/19 04:00 05/09/19 04:00 05/09/19 04:00 Laboratory Results - last 24 hr 05/08/19 08:05: WBC 7.5, RBC 3.42 L, Hgb 9.7 L, Hct 30.4 L, MCV 88.9, MCH 28.5, MCHC 32.0, RDW 12.2, Plt Count 265 D, MPV 7.3 L, Neut % (Auto) 72.6, Lymph % (Auto) 15.6, [place] % (Auto) 8.4, Eos % (Auto) 3.0, Baso % (Auto) 0.4, Neut # (Auto) 5.5, Lymph # (Auto) 1.2, [place] # (Auto) 0.6, Eos # (Auto) 0.2, Baso # (Auto) 0.0 05/08/19 10:15: Sodium 145, Potassium 4.7, Chloride 106, Carbon Dioxide 26, Anion Gap 17.7 H, BUN 30 H D, Creatinine 1.06 H D, Estimated Creat Clear 63, Estimated GFR 52 L, Est GFR ( Amer) 63 D, Glucose 85, Calcium 8.5 D, Total Bilirubin 0.5, AST 45 H D, ALT 35, Alkaline Phosphatase 94, Total Protein 6.4, Albumin 3.0 L, Globulin 3.4 H, Albumin/Globulin Ratio 0.9 L 05/09/19 05:50: WBC 8.0, RBC 3.42 L, Hgb 9.7 L, Hct 29.9 L, MCV 87.5, MCH 28.5, MCHC 32.5, RDW 12.3, Plt Count 281, MPV 7.8, Neut % (Auto) 68.2, Lymph % (Auto) 18.4, [place] % (Auto) 10.8 H, Eos % (Auto) 2.2, Baso % (Auto) 0.4, Neut # (Auto) 5.4, Lymph # (Auto) 1.5, [place] # (Auto) 0.9, Eos # (Auto) 0.2, Baso # (Auto) 0.0 05/09/19 05:50: Sodium 147 H, Potassium 4.0, Chloride 107, Carbon Dioxide 25, Anion Gap 19.0 H, BUN 25 H, Creatinine 1.16 H, Estimated Creat Clear 57, Estimat ed GFR 47 L, Est GFR ( Amer) 57 L, Glucose 87, Calcium 8.7 I & O for Last 24 hours: Intake & Output 05/06/19 05/07/19 05/08/19 05/09/19 11:59 11:59 11:59 11:59 Intake Total 1783 / 1783 3248 / 3248 60 / 60 Output Total 2049 / 2049 1600 / 1600 2200 / 2200 Balance -267 / -267 1648 / 1648 -2140 / -2140 Weight 168 lb 4 oz - *Routine Abdominal Exam Present: soft Progress Note: A&P (1) Acute kidney injury superimposed on chronic kidney disease Status: Acute Current Visit: Yes (2) Congenital heart disease Status: Acute Current Visit: Yes (3) Seizure disorder Status: Acute Current Visit: Yes (4) Essential hypertension Status: Acute Current Visit: Yes (5) Bedbound Status: Acute Current Visit: Yes (6) Small bowel obstruction, partial Status: Acute Current Visit: Yes Assessment and Plan for All Diagnoses:: I will see how she does with advancing diet to thickened liquids.
--- NOTE | 2019-05-09 08:25 | Progress Note ---
Internal Medicine - PN: Mariaa *Date: 05/09/19 *Time: 08:24 Interval history: Patient pulled her NG tube out last night, has had no vomiting since that time. Abdomen is much softer and she feels much better. Exam Vital signs and Labs for Last 24 Hours: Temp Pulse Resp BP Pulse Ox 98.9 F 87 17 147/63 H 94 L 05/09/19 07:56 05/09/19 07:56 05/09/19 07:56 05/09/19 07:56 05/09/19 07:56 Laboratory Results - last 24 hr 05/08/19 10:15: Sodium 145, Potassium 4.7, Chloride 106, Carbon Dioxide 26, Anion Gap 17.7 H, BUN 30 H D, Creatinine 1.06 H D, Estimated Creat Clear 63, Estimated GFR 52 L, Est GFR ( Amer) 63 D, Glucose 85, Calcium 8.5 D, Total Bilirubin 0.5, AST 45 H D, ALT 35, Alkaline Phosphatase 94, Total Protein 6.4, Albumin 3.0 L, Globulin 3.4 H, Albumin/Globulin Ratio 0.9 L 05/09/19 05:50: WBC 8.0, RBC 3.42 L, Hgb 9.7 L, Hct 29.9 L, MCV 87.5, MCH 28.5, MCHC 32.5, RDW 12.3, Plt Count 281, MPV 7.8, Neut % (Auto) 68.2, Lymph % (Auto) 18.4, [place] % (Auto) 10.8 H, Eos % (Auto) 2.2, Baso % (Auto) 0.4, Neut # (Auto) 5.4, Lymph # (Auto) 1.5, [place] # (Auto) 0.9, Eos # (Auto) 0.2, Baso # (Auto) 0.0 05/09/19 05:50: Sodium 147 H, Potassium 4.0, Chloride 107, Carbon Dioxide 25, Anion Gap 19.0 H, BUN 25 H, Creatinine 1.16 H, Estimated Creat Clear 57, Estimated GFR 47 L, Est GFR ( Amer) 57 L, Glucose 87, Calcium 8.7 I & O for Last 24 hours: Intake & Output 06/21/19 06/22/19 06/23/19 06/24/19 11:59 11:59 11:59 11:59 Intake Total 1783 / 1783 3248 / 3248 60 / 60 Output Total 2049 1600 / 1600 2200 / 220 Balance -267 / -267 1648 / 1648 -2140 / -2140 Weight 168 lb 4 oz Narrative: Patient is pleasant and talkative. Oropharynx clear. Abdomen is soft, patient is very communicative and wishes [facility]. Anterior lung sin are clear, heart rate regular. Assessment and Plan (1) Acute kidney injury superimposed on chronic kidney disease Current visit: Yes Status: Acute Category: Medical Code(s): N17.9 - Acute kidney failure, unspecified; N18.9 - Chronic kidney disease, unspecified (2) Congenital heart disease Current visit: Yes Status: Acute Category: Medical Code(s): Q24.9 - Conge nital malformation of heart, unspecified (3) Seizure disorder Current visit: Yes Status: Acute Category: Medical Code(s): G40.909 - Epilepsy, unspecified, not intractable, without status epilepticus (4) Essential hypertension Current visit: Yes Status: Acute Category: Medical Code(s): I10 - Essential (primary) hypertension (5) Bedbound Current visit: Yes Status: Acute Category: Medical Code(s): Z74.01 - Bed confinement status (6) Small bowel obstruction, partial Current visit: Yes Status: Acute Category: Medical Code(s): K56.600 - Partial intestinal obstruction, unspecified as to cause - Assessment and plan all Dx Assessment and Plan for all problems:: Overall nice improvement. CT scan yesterday showed almost complete resolution of her SBO issues. Renal function is improved, advance patient to diet per speech recommendation today and probable transfer back to [facility] tomorrow.
[2019-05-10 06:04] LABS: Basophils # 0.1 K/mm3 (0-0.2); Eosinophils # 0.3 K/mm3 (0.0-0.4); Red Cell Distribution Width 12.5 % (11.5-17.5)
[2019-05-10 06:10] LABS: Anion Gap 19.4 mEq/L (5-15); Calcium 8.5 mg/dL (8.5-10.1)
[2019-05-10 06:39] LABS: Basophils % 0.8 % (0.1-2.0); Eosinophils % 3.3 % (0.1-12.0); Hematocrit 32.8 % (37.0-47.0); Lymphocytes # 1.3 K/mm3 (0.7-4.5); Lymphocytes % 16.9 % (10-50); Mean Corpuscular HGB Conc 33.2 g/dL (31.8-35.4); Mean Corpuscular Volume 90.9 fl (81-99); Mean Platelet Volume 7.7 fl (7.4-10.4); Monocytes # 0.6 K/mm3 (0.1-1.0); Monocytes % 8.4 % (1.7-9.3); Neutrophils # 5.4 K/mm3 (1.8-7.8); Neutrophils % 70.7 % (37.0-80.0); Platelet Count 282 K/mm3 (142-424); White Blood Count 7.7 K/mm3 (4.8-10.8)
[2019-05-10 06:56] LABS: Hemoglobin 10.9 g/dL (12.2-16.2)
--- NOTE | 2019-05-10 08:59 | Discharge Summary ---
General - General Admission date:: 05/06/19 Discharge date: 05/10/19 HPI HPI: Patient is a 68-year-old white female with reported history of cerebral palsy, seizure disorder, cognitive deficit who is a longtime resident of [facility]. She was transported to the emergency department this afternoon due to vomiting for a couple of days. Evaluation in the emergency department included noncontrast CT scan which revealed findings consistent with possible bowel obstruction. This is characterized by massively distended stomach and duodenum with appreciable dilatation of proximal small bowel with possible transition point in the mid small bowel in the left lower quadrant. She was admitted for inpatient management and surgical consultation. Although patient is nonverbal she is able to communicate somewhat with shaking of her head and nonverbal communication. This morning she indicates that her pain is still present. Hospital Course Hospital Course: Patient admitted for small bowel obstruction. Surgery consulted for obstruction. NG was placed with decompression of the stomach. Patient tolerated this for approximately 24 hours before removing the tube. Gradually had improvement in bowel movements and p.o. intake. Patient did not eat very well during admission however this is reportedly her baseline where she is a picky eater. Noted to have some lesions on her tongue which may be complicating her p.o. intake. Initiated on Magic mouthwash to treat this. Patient had active bowel sounds, passing flatus and bowel movements, tolerating small amounts of p.o. intake on day of discharge. Hemodynamically stable and meeting medical criteria for discharge back to her snf with continued advancement of feeds. Interestingly, found to have some conjunctivitis on day of discharge, initiated ofloxacin ophthalmic drops to complete course over the next 7 days. Additionally continue Magic mouthwash 2-4 times a day as needed for oral pain/comfort with eating. Afebrile, hemodynamically stable, denies nausea or vomiting. At baseline mentation. States she is ready to go back to her snf; when asked, she nods yes Objective Vital signs: Temp Pulse Resp BP Pulse Ox 98.9 F 83 18 175/73 H 97 05/10/19 08:00 05/10/19 08:00 05/10/19 08:00 05/10/19 08:00 05/10/19 08:00 Narrative: Chronically ill appearing, minimally verbal Edentulous, geographic tongue with patchy erythema on tongur, MMM, no sores on mucosa Patient is pleasant, interactive on exam Abdomen is soft, BS active patient is somewhat communicative and wishes to go back to the snf today. Anterior lung sin are clear, heart rate regular. Results Labs on day of discharge: Labs from last 24 hours 05/10/19 05/10/19 05:45 05:45 WBC 7.7 RBC 3.60 L Hgb 10.9 L D Hct 32.8 L MCV 90.9 MCH 30.2 MCHC 33.2 RDW 12.5 Plt Count 282 MPV 7.7 Neut % (Auto) 70.7 Lymph % (Auto) 16.9 [place] % (Auto) 8.4 Eos % (Auto) 3.3 Baso % (Auto) 0.8 Neut # (Auto) 5.4 Lymph # (Auto) 1.3 [place] # (Auto) 0.6 Eos # (Auto) 0.3 Baso # (Auto) 0.1 Sodium 141 Potassium 3.4 L Chloride 101 Carbon Dioxide 24 Anion Gap 19.4 H BUN 16 D Creatinine 1.00 Estimated Creat Clear 63 Estimated GFR 55 L Est GFR ( Amer) 67 Glucose 89 Calcium 8.5 DS: Diagnosis - Discharge Diagnosis (1) Acute kidney injury superimposed on chronic kidney disease Status: Acute (2) Congenital heart disease Status: Chronic (3) Seizure disorder Status: Chronic (4) Essential hypertension Status: Chronic (5) Bedbound Status: Chronic (6) Small bowel obstruction, partial Status: Resolved Discharge Plan - Patient Discharge Instructions ACTIVITY: Up with assistance DIET: continue same diet Patient Instructions: DI for Kidney Failure, DI for Seizure Disorder -- Adult, DI for Small Bowel Obstruction - Follow up Plan Follow up with: Nick Griffiths MD [Staff Physician] - 05/23/19 2:00 pm Disposition: er [facility] Home Medications: Home Medications Medication Instructions Recorded Confirmed Type Amlodipine Besylate [Amlodipine 10 mg PO DAILY 07/28/18 05/06/19 History 10mg Tab] Atorvastatin Calcium [Atorvastatin 40 mg PO HS 07/28/18 05/07/19 History 40mg Tab] Furosemide [Furosemide 20mg Tab] 20 mg PO DAILY 07/28/18 05/06/19 History Gabapentin [Neurontin 800mg Tab] 800 mg PO QID 07/28/18 05/06/19 History Lisinopril [Lisinopril 10mg Tab] 10 mg PO DAILY 07/28/18 05/06/19 History Loratadine [Claritin] 10 mg PO DAILY 07/28/18 05/06/19 History Omeprazole [Omeprazole 20mg 20 mg PO QODHS 07/28/18 05/06/19 History Capsule] PHENobarbital [PHENobarbital 64.8 mg PO DAILY 07/28/18 05/06/19 History 32.4mg Tablet] Sertraline HCl [Zoloft] 100 mg PO DAILY 07/28/18 05/06/19 History carBAMazepine [carBAMazepine 200mg 400 mg PO BID 07/28/18 05/06/19 History Tablet] levETIRAcetam [Levetiracetam] 1,000 mg PO BID 07/28/18 05/06/19 History Acetaminophen [Tylenol 500mg 500 mg PO QIDP PRN 08/26/18 05/07/19 History tablet] Ibuprofen [Motrin 600mg 600 mg PO BID 08/26/18 05/06/19 History Tablet] Lactulose [Lactulose 20gm/30ml 20 gm PO DAILYP PRN 08/26/18 05/06/19 History Oral Soln] Calcium Carbonate/Vitamin D3 1 each PO BID 05/06/19 05/07/19 History [Oyster Shell 250-Vit D3 125 Tb] Carboxymethyl/Gly/Poly80/Pf 1 drop OP BID 05/06/19 05/07/19 History [Refresh Optive Advanced Drops] Icosapent Ethyl [Vascepa] 2 cap PO BID 05/06/19 05/06/19 History Propylene Glycol/Peg 400 [Systane 2 drp OP HS 05/06/19 05/06/19 History Gel Eye Drops] Sennosides [Senna] 8.6 mg PO DAILYP PRN 05/06/19 05/06/19 History hydrOXYzine HCl [Hydroxyzine HCl] 25 mg PO TID 05/06/19 05/06/19 History Docusate Sodium [Colace 250mg 250 mg PO BID 05/07/19 05/07/19 History capsule] Vitamin B Complex Vit C No.3 [B 1 each PO DAILY 05/07/19 05/07/19 History Complex with Vitamin C] Magic Mouthwash [Magic 15 ml PO QID 7 Days bottle 05/10/19 Rx Mouthwash;240mL [place]] Ofloxacin [Ocuflox 0.3% OPHTH 0 ml OP Q4H 7 Days bottle 05/10/19 Rx drops 5mL] Prescriptions/Medication Reconciliation: New Magic Mouthwash [Magic Mouthwash;240mL [place]] 15 ml PO QID 7 Days bottle Ofloxacin [Ocuflox 0.3% OPHTH drops 5mL] 0 ml OP Q4H 7 Days bottle Continued Sertraline HCl [Zoloft] 100 mg PO DAILY PHENobarbital [PHENobarbital 32.4mg Tablet] 64.8 mg PO DAILY Loratadine [Claritin] 10 mg PO DAILY Lisinopril [Lisinopril 10mg Tab] 10 mg PO DAILY levETIRAcetam [Levetiracetam] 1,000 mg PO BID Gabapentin [Neurontin 800mg Tab] 800 mg PO QID Furosemide [Furosemide 20mg Tab] 20 mg PO DAILY Atorvastatin Calcium [Atorvastatin 40mg Tab] 40 mg PO HS Acetaminophen [Tylenol 500mg tablet] 500 mg PO QIDP PRN PRN Reason: fever or pain Icosapent Ethyl [Vascepa] 2 cap PO BID Sennosides [Senna] 8.6 mg PO DAILYP PRN PRN Reason: Constipation Propylene Glycol/Peg 400 [Systane Gel Eye Drops] 2 drp OP HS Docusate Sodium [Colace 250mg capsule] 250 mg PO BID Amlodipine Besylate [Amlodipine 10mg Tab] 10 mg PO DAILY Omeprazole [Omeprazole 20mg Capsule] 20 mg PO QODHS carBAMazepine [carBAMazepine 200mg Tablet] 400 mg PO BID Ibuprofen [Motrin 600mg Tablet] 600 mg PO BID Lactulose [Lactulose 20gm/30ml Oral Soln] 20 gm PO DAILYP PRN PRN Reason: Constipation Calcium Carbonate/Vitamin D3 [Oyster Shell 250-Vit D3 125 Tb] 1 each PO BID Carboxymethyl/Gly/Poly80/Pf [Refresh Optive Advanced Drops] 1 drop OP BID hydrOXYzine HCl [Hydroxyzine HCl] 25 mg PO TID Vitamin B Complex Vit C No.3 [B Complex with Vitamin C] 1 each PO DAILY
[2019-05-10 10:40] VITALS: BP 130/68
== END 2019-05-10 10:40 | DRG 389 ==
LOC: ER 13:34 → 2ND 17:17
PROVIDERS: ADMIT Internal Medicine Adolescent Medicine; ATTEND Internal Medicine Adolescent Medicine
CPT/HCPCS: 36415; 71010; 71045; 74019; 74020; 74176; 80048; 80053; 81001; 83605; 84484; 85007; 85025; 92610; 93005; 96365; 96375; 99285; J1953; J2405

== ENCOUNTER 2019-05-11 09:37 | Emergency (ER) | payer MEDICARE, MEDICAID, SELFPAY ==
[2019-05-11] VITALS (8 sets, daily range): BP systolic 151–173; BP diastolic 83–99; PULSE 77–111; RESP 19–20; TEMP 37.2–37.5; O2SAT 92–97; BMI 28.3
--- NOTE | 2019-05-11 09:54 | CT_ITS ---
CT head/brain wo con HISTORY: ITS.REASON: [facility] ORDERING PHYSICIAN: Deric Little MD PATIENT AGE: 68 years COMPARISON: 08/26/2018. TECHNIQUE: Axial images obtained without contrast. Brain and bone windows reviewed. All CT scans at the facility use one or more dose reduction, viz: automated exposure control, ma/kV adjustment per patient size (including targeted exams where dose is matched to indication, i.e. head), or iterative reconstruction technique. FINDINGS: No midline shift, mass effect, intracranial hemorrhage, hydrocephalus, or extra-axial fluid collection is evident. The degree of mild diffuse cortical atrophy is stable. Cortical areas are normal. There are no new areas of abnormal attenuation. The calvarium has an unremarkable appearance. No mastoid effusion. No sinus air-fluid levels.. IMPRESSION: No change or acute process. Mild generalized cortical atrophy.
--- NOTE | 2019-05-11 09:56 | XR_ITS ---
XR chest portable HISTORY: ITS.REASON: ams ORDERING PHYSICIAN: Deric Little MD PATIENT AGE: 68 years COMPARISON: None FINDINGS: The cardiomediastinal silhouette and pulmonary vascularity are within normal limits. There is a 3 mm benign calcified granuloma in the retrocardiac left lower lobe. The remainder of the lung sin are clear.. No acute bony abnormalities. IMPRESSION: No acute process.
--- NOTE | 2019-05-11 10:22 | HMH.EDAMS ---
ED Disposition Clinical Impression: Change in mental status Disposition: Home, Self-Care Condition on Discharge: Good Instructions: DI for Altered Mental Status Referrals: Deric Vu [Primary Care Provider] - Time of Disposition: 14:25 - Critical Care Critical Care Time: No Attestation: On 05/11/19, the high probability of a clinically significant, sudden or life threatening deterioration of the following system(s) required my full and direct attention, intervention and personal management. The time I documented below is in addition to time spent performing reported procedures but includes the following listed in this critical care notation. Medical Decision Making - Medical Records Medical records reviewed: Yes: I reviewed the patient's medical records. - Wong Inquiry Pt receiving controlled substance: No Wong was queried for this patient: No Vital Signs: 05/11/19 09:38 05/11/19 10:33 05/11/19 11:00 Temperature 99.5 F Temperature Source Rectal Pulse Rate Pulse Rate [Left Radial] 111 H 82 89 Respiratory Rate 20 Blood Pressure Blood Pressure [Right Arm] 152/90 H 173/99 H 171/95 H Blood Pressure Mean [Right Arm] 110 123 120 Blood Pressure Source Blood Pressure Source [Right Arm] Automatic Cuff Blood Pressure Position Blood Pressure Position [Right Arm] Sitting Supine Supine 02 Sat by Pulse Oximetry 92 L 95 95 Oxygen Delivery Method Room Air Room Air Room Air 05/11/19 12:00 05/11/19 12:30 05/11/19 13:04 Temperature Temperature Source Pulse Rate Pulse Rate [Left Radial] 78 92 H 77 Respiratory Rate Blood Pressure Blood Pressure [Right Arm] 161/86 H 159/85 H 156/86 H Blood Pressure Mean [Right Arm] 111 109 109 Blood Pressure Source Blood Pressure Source [Right Arm] Automatic Cuff Automatic Cuff Automatic Cuff Blood Pressure Position Blood Pressure Position [Right Arm] Supine Supine Supine 02 Sat by Pulse Oximetry 94 L 96 95 Oxygen Delivery Method Room Air Room Air Room Air 05/11/19 13:44 05/11/19 14:44 Temperature 99.0 F Temperature Source Oral Pulse Rate 80 Pulse Rate [Left Radial] 79 Respiratory Rate 19 Blood Pressure 151/85 H Blood Pressure [Right Arm] 158/83 H Blood Pressure Mean [Right Arm] 108 Blood Pressure Source Automatic Cuff Blood Pressure Source [Right Arm] Automatic Cuff Blood Pressure Position Sitting Blood Pressure Position [Right Arm] Supine 02 Sat by Pulse Oximetry 97 Oxygen Delivery Method Room Air Room Air - Lab Data Lab results reviewed: Yes: I reviewed the patient's lab results. Lab Results 05/11/19 10:30: WBC 7.6, RBC 3.82 L, Hgb 11.6 L, Hct 34.3 L, MCV 89.9, MCH 30.3, MCHC 33.7, RDW 12.7, Plt Count 197 D, MPV 7.3 L, Neut % (Auto) 65.1, Lymph % (Auto) 22.3, [place] % (Auto) 7.2, Eos % (Auto) 4.8, Baso % (Auto) 0.6, Neut # (Auto) 5.0, Lymph # (Auto) 1.7, [place] # (Auto) 0.5, Eos # (Auto) 0.4, Baso # (Auto) 0.1 05/11/19 10:30: Sodium 141, Potassium 3.2 L, Chloride 101, Carbon Dioxide 26, Anion Gap 17.2 H, BUN 20 H, Creatinine 1.07 H, Estimated Creat Clear 63, Estimated GFR 51 L, Est GFR ( Amer) 62, Glucose 90, Calcium 8.8, Total Bilirubin 0.5, AST 55 H, ALT 62, Alkaline Phosphatase 103, Total Protein 6.8, Albumin 3.1 L, Globulin 3.7 H, Albumin/Globulin Ratio 0.8 L 05/11/19 10:30: Lactate 0.8 05/11/19 10:55: Urine Color Yellow, Urine Appearance Cloudy, Urine pH 6.0, Ur Specific [place] >= 1.030, Urine Protein 2+, Urine Glucose (UA) Negative, Urine Ketones 1+, Urine Blood 1+, Urine Nitrate Negative, Urine Bilirubin 2+ A, Urine Urobilinogen 0.2, Ur Leukocyte Esterase Negative, Urine RBC 10-20, Urine Bacteria 2+ 05/11/19 11:14: Phenobarbital 9.9 L 05/11/19 11:14: Levetiracetam 23.0 05/11/19 12:35: Urine Opiates Screen Positive H, Urine Methadone Screen Negative, Ur Barbituates Screen Positive H, Ur Phencyclidine Scrn Negative, Ur Amphetamines Screen Negative, U Benzodiazepines Scrn Negative, Urine Cocaine Screen Negative
--- NOTE | 2019-05-11 10:26 | ED_ITS ---
ED Disposition Clinical Impression: Change in mental status Disposition: Home, Self-Care Condition on Discharge: Good Instructions: DI for Altered Mental Status Referrals: Deric Vu [Primary Care Provider] - Time of Disposition: 14:25 - Critical Care Critical Care Time: No Attestation: On 05/11/19, the high probability of a clinically significant, sudden or life threatening deterioration of the following system(s) required my full and direct attention, intervention and personal management. The time I documented below is in addition to time spent performing reported procedures but includes the following listed in this critical care notation. Medical Decision Making - Medical Records Medical records reviewed: Yes: I reviewed the patient's medical records. - Wong Inquiry Pt receiving controlled substance: No Wong was queried for this patient: No Vital Signs: 05/11/19 09:38 05/11/19 10:33 05/11/19 11:00 Temperature 99.5 F Temperature Source Rectal Pulse Rate Pulse Rate [Left Radial] 111 H 82 89 Respiratory Rate 20 Blood Pressure Blood Pressure [Right Arm] 152/90 H 173/99 H 171/95 H Blood Pressure Mean [Right Arm] 110 123 120 Blood Pressure Source Blood Pressure Source [Right Arm] Automatic Cuff Blood Pressure Position Blood Pressure Position [Right Arm] Sitting Supine Supine 02 Sat by Pulse Oximetry 92 L 95 95 Oxygen Delivery Method Room Air Room Air Room Air 05/11/19 12:00 05/11/19 12:30 05/11/19 13:04 Temperature Temperature Source Pulse Rate Pulse Rate [Left Radial] 78 92 H 77 Respiratory Rate Blood Pressure Blood Pressure [Right Arm] 161/86 H 159/85 H 156/86 H Blood Pressure Mean [Right Arm] 111 109 109 Blood Pressure Source Blood Pressure Source [Right Arm] Automatic Cuff Automatic Cuff Automatic Cuff Blood Pressure Position Blood Pressure Position [Right Arm] Supine Supine Supine 02 Sat by Pulse Oximetry 94 L 96 95 Oxygen Delivery Method Room Air Room Air Room Air 05/11/19 13:44 05/11/19 14:44 Temperature 99.0 F Temperature Source Oral Pulse Rate 80 Pulse Rate [Left Radial] 79 Respiratory Rate 19 Blood Pressure 151/85 H Blood Pressure [Right Arm] 158/83 H Blood Pressure Mean [Right Arm] 108 Blood Pressure Source Automatic Cuff Blood Pressure Source [Right Arm] Automatic Cuff Blood Pressure Position Sitting Blood Pressure Position [Right Arm] Supine 02 Sat by Pulse Oximetry 97 Oxygen Delivery Method Room Air Room Air - Lab Data Lab results reviewed: Yes: I reviewed the patient's lab results. Lab Results 05/11/19 10:30: WBC 7.6, RBC 3.82 L, Hgb 11.6 L, Hct 34.3 L, MCV 89.9, MCH 30.3, MCHC 33.7, RDW 12.7, Plt Count 197 D, MPV 7.3 L, Neut % (Auto) 65.1, Lymph % (Auto) 22.3, [place] % (Auto) 7.2, Eos % (Auto) 4.8, Baso % (Auto) 0.6, Neut # (Auto) 5.0, Lymph # (Auto) 1.7, [place] # (Auto) 0.5, Eos # (Auto) 0.4, Baso # (Auto) 0.1 05/11/19 10:30: Sodium 141, Potassium 3.2 L, Chloride 101, Carbon Dioxide 26, Anion Gap 17.2 H, BUN 20 H, Creatinine 1.07 H, Estimated Creat Clear 63, Estimated GFR 51 L, Est GFR ( Amer) 62, Glucos
--- NOTE | 2019-05-11 10:32 | PC.NURSE ---
v/s delayed due to IV attempts
[2019-05-11 10:43] LABS: Basophils # 0.1 K/mm3 (0-0.2); Basophils % 0.6 % (0.1-2.0); Eosinophils # 0.4 K/mm3 (0.0-0.4); Eosinophils % 4.8 % (0.1-12.0); Hematocrit 34.3 % (37.0-47.0); Hemoglobin 11.6 g/dL (12.2-16.2); Lymphocytes # 1.7 K/mm3 (0.7-4.5); Lymphocytes % 22.3 % (10-50); Mean Corpuscular HGB Conc 33.7 g/dL (31.8-35.4); Mean Corpuscular Hemoglobin 30.3 pg (27.0-31.2); Mean Corpuscular Volume 89.9 fl (81-99); Mean Platelet Volume 7.3 fl (7.4-10.4); Monocytes # 0.5 K/mm3 (0.1-1.0); Monocytes % 7.2 % (1.7-9.3); Neutrophils % 65.1 % (37.0-80.0); Platelet Count 197 K/mm3 (142-424); Red Blood Count 3.82 M/mm3 (4.20-5.40); Red Cell Distribution Width 12.7 % (11.5-17.5); White Blood Count 7.6 K/mm3 (4.8-10.8)
[2019-05-11 11:00] LABS: Alanine Aminotransferase 62 U/L (12-78); Albumin Level 3.1 gm/dL (3.4-5.0); Albumin/Globulin Ratio 0.8 (1.1-1.8); Alkaline Phosphatase 103 U/L (46-116); Anion Gap 17.2 mEq/L (5-15); Aspartate Amino Transferase 55 U/L (15-37); Bilirubin,Total 0.5 mg/dL (0.2-1.0); Blood Urea Nitrogen 20 mg/dL (7-18); Calcium 8.8 mg/dL (8.5-10.1); Carbon Dioxide 26 mmol/L (21.0-32.0); Chloride 101 mmol/L (98-107); Creatinine Clearance Estimated 63 mL/min (50-200); Creatinine,Serum 1.07 mg/dL (0.55-1.02); Estimated Glomerular Filt Rate 51 ml/min (>60); GFR (African American) 62 ML/MIN (>60); Globulin 3.7 gm/dl (1.3-3.2); Glucose 90 mg/dL (74-106); Potassium 3.2 mmoL/L (3.5-5.1); Sodium 141 mmol/L (136-145); Total Protein,Serum 6.8 gm/dL (6.4-8.2)
[2019-05-11 11:01] LABS: Lactic Acid 0.8 mmol/L (0.4-2.0)
[2019-05-11 11:04] LABS: Microscopic, Urine URINE MICROSCOPIC (MICROSCOPIC)
[2019-05-11 11:05] LABS: Appearance,Urine CLOUDY (Clear); Blood, Urine 1+ (Negative); Color,Urine YELLOW (Yellow); Glucose,Urine (UA) Negative (Negative); Ketones,Urine 1+ (Negative); Leukocyte Esterase,Urine Negative (Negative); Nitrate,Urine Negative (Negative); Protein,Urine 2+ (Negative); Specific Gravity, Urine >= 1.030 (1.005-1.030); Urobilinogen,Urine 0.2 EU/dl (0.2)
[2019-05-11 11:28] LABS: Bilirubin,Urine 2+ (Negative)
[2019-05-11 11:36] LABS: Bacteria,Urine 2+ /lpf
--- NOTE | 2019-05-11 11:40 | PC.NURSE ---
Pt with rad.
--- NOTE | 2019-05-11 11:58 | PC.NURSE ---
Pt returned from rad. sitting up and is more alert at this time. Shakes her head no when asked if she is hurting anywhere. shakes her head yes when asked if she feels ok.
[2019-05-11 12:55] LABS: Amphetamine/Metha Screen,Urine Negative ng/mL (<1000); Barbiturates Screen,Urine Positive ng/mL (<200); Benzodiazepines Screen,Urine Negative ng/mL (<200); Cannabinoid Screen,Urine Negative ng/mL (<50); Cocaine Screen,Urine Negative ng/mL (<300); Methadone Screen,Urine Negative ng/mL (<300); Opiate Screen,Urine Positive ng/mL (<300); Phencyclidine Screen,Urine Negative ng/mL (<25)
--- NOTE | 2019-05-11 14:12 | PC.NURSE ---
Pt sitting up drinking a pepsi with assistance from family
--- NOTE | 2019-05-11 14:28 | PC.NURSE ---
notified [facility] of transport back to [facility]
== END 2019-05-11 14:51 | disposition home or self-care (01) ==
PROVIDERS: Emergency Provider Emergency Medicine; PCP Family Medicine
DX: K56.600 Partial intestinal obstruction, unspecified as to cause (principal); J44.9 Chronic obstructive pulmonary disease, unspecified; E78.5 Hyperlipidemia, unspecified; I10 Essential (primary) hypertension
CPT/HCPCS: 36415; 70450; 71045; 80053; 80177; 80184; 80305; 81001; 83605; 85025; 87040; 87077; 87086; 87088; 87186; 93005; 99284

== ENCOUNTER 2019-06-16 14:55 | Inpatient (IN) ==
[2019-06-16 16:43] LABS: Basophils # 0.1 K/mm3 (0-0.2); Basophils % 0.6 % (0.1-2.0); Eosinophils # 0.1 K/mm3 (0.0-0.4); Eosinophils % 1.2 % (0.1-12.0); Hematocrit 33.6 % (37.0-47.0); Hemoglobin 10.6 g/dL (12.2-16.2); Lymphocytes # 1.1 K/mm3 (0.7-4.5); Lymphocytes % 14.7 % (10-50); Mean Corpuscular HGB Conc 31.7 g/dL (31.8-35.4); Mean Platelet Volume 9.6 fl (7.4-10.4); Monocytes # 0.3 K/mm3 (0.1-1.0); Monocytes % 3.9 % (1.7-9.3); Neutrophils # 6.1 K/mm3 (1.8-7.8); Neutrophils % 79.6 % (37.0-80.0); Platelet Count 349 K/mm3 (142-424); Red Blood Count 3.57 M/mm3 (4.20-5.40); Red Cell Distribution Width 14.1 % (11.5-17.5); White Blood Count 7.7 K/mm3 (4.8-10.8)
[2019-06-16 16:54] LABS: Albumin Level 3.4 gm/dL (3.4-5.0); Albumin/Globulin Ratio 0.9 (1.1-1.8); Anion Gap 21.6 mEq/L (5-15); Bilirubin,Total 0.4 mg/dL (0.2-1.0); Calcium 9.6 mg/dL (8.5-10.1); Globulin 3.9 gm/dl (1.3-3.2); Total Protein,Serum 7.3 gm/dL (6.4-8.2)
--- NOTE | 2019-06-16 17:11 | Emergency Department Note ---
ED Disposition Clinical Impression: BETHANY (acute kidney injury), Dehydration Disposition: Admitted as Observation Condition on Discharge: Serious Referrals: Deric Vu [Primary Care Provider] - Time of Disposition: 20:27 - Critical Care Critical Care Time: No Attestation: On 06/16/19, the high probability of a clinically significant, sudden or life threatening deterioration of the following system(s) required my full and direct attention, intervention and personal management. The time I documented below is in addition to time spent performing reported procedures but includes the following listed in this critical care notation. Medical Decision Making - Wong Inquiry Pt receiving controlled substance: No Wong was queried for this patient: No Vital Signs: 06/16/19 14:52 06/16/19 15:54 Temperature 97.7 F Temperature Source Oral Pulse Rate [Right Radial] 82 79 Respiratory Rate 16 18 Blood Pressure [Right Arm] 116/49 L 113/61 Blood Pressure Mean [Right Arm] 71 78 Blood Pressure Source [Right Arm] Automatic Cuff Automatic Cuff Blood Pressure Position [Right Arm] Sitting Supine 02 Sat by Pulse Oximetry 97 98 Oxygen Delivery Method Room Air Room Air - Lab Data Lab results reviewed: Yes: I reviewed the patient's lab results. Lab Results 06/16/19 16:36: WBC 7.7, RBC 3.57 L, Hgb 10.6 L, Hct 33.6 L, MCV 94.0, MCH 29.8, MCHC 31.7 L, RDW 14.1, Plt Count 349, MPV 9.6, Neut % (Auto) 79.6, Lymph % (Auto) 14.7, [place] % (Auto) 3.9, Eos % (Auto) 1.2, Baso % (Auto) 0.6, Neut # (Auto) 6.1, Lymph # (Auto) 1.1, [place] # (Auto) 0.3, Eos # (Auto) 0.1, Baso # ( Auto) 0.1 06/16/19 16:36: Sodium 143, Potassium 3.6, Chloride 102, Carbon Dioxide 23, Anion Gap 21.6 H, BUN 64 H, Creatinine 2.94 H, Estimated Creat Clear 27, Estimated GFR 16 L*, Est GFR ( Amer) 19 L*, Glucose 115 H, Calcium 9.6, Total Bilirubin 0.4, AST 12 L, ALT 23, Alkaline Phosphatase 104, Total Protein 7.3, Albumin 3.4, Globulin 3.9 H, Albumin/Globulin Ratio 0.9 L 06/16/19 19:49: Urine Color Yellow, Urine Appearance Clear, Urine pH 5.5, Ur Specific [place] 1.015, Urine Protein Trace, Urine Glucose (UA) Negative, Urine Ketones Negative, Urine Blood Negative, Urine Nitrate Negative, Urine Bilirubin Negative, Urine Urobilinogen 0.2, Ur Leukocyte Esterase Negative, Urine RBC Occasional, Urine WBC 5-10, Ur Squamous Epith Cells 5-10, Urine Bacteria 2+ Result diagrams: 06/16/19 16:36 06/16/19 16:36 Orders (Tests/Meds): ED MEDICATIONS Generic Name Dose Route Start Last Admin Trade Name Freq PRN Reason Stop Dose Admin Sodium Chloride 1,000 mls @ 999 mls/hr 06/16/19 20:00 06/16/19 19:00 Sod Chlor 0.9% 1000ml Bag IV 06/16/19 21:00 999 mls/hr .Q1H1M YING Administration Sodium Chloride 1,000 mls @ 999 mls/hr 06/16/19 20:00 06/16/19 19:59 Sod Chlor 0.9% 1000ml Bag IV 06/16/19 21:00 999 mls/hr .Q1H1M YING Administration ORDERS Category Date Time Status Portable CXR [XR chest portable] Stat Exams 06/16/19 17:10 Taken Urine Culture Stat Micro 06/16/19 19:49 Received Medical Decision Narrative: multiple attempts at femoral line insertion. On R, vein femoral was tiny, features of collapse. On left side, the femoral vein was behind the femora lartery. Multiple attempts by picc line nurse also failed, finally just before subclavian attempt... 22 guage in breast was finally successful Abby General Adult HPI - General Chief complaint: Weakness Stated complaint: LETHARGY Time Seen by Provider: 06/16/19 17:07 Mode of Arrival: EMS Source of Information: Relative, EMS Limitations: No Limitations Description of Symptoms (Recalled from ER Triage Doc. by RN): HEALTHCARE FACILITY REPORTS THAT PT WAS HYPOTENSIVE AND LETHARGIC. PT PRESENTS TO ED VIA EMS WITH NO COMPLAINTS AND STATES THAT SHE WISHES TO GO BACK TO [facility]. PT DENIES ANY PAIN AND STATES "I FEEL OK". - History of Present Illness HPI narrative: appears volume depleted. poor intake - Related Data Home Medications Medication Instructions Recorded Confirmed Amlodipine Besylate [Amlodipine 10 mg PO DAILY 07/28/18 05/11/19 10mg Tab] Atorvastatin Calcium [Atorvastatin 40 mg PO HS 07/28/18 05/11/19 40mg Tab] Furosemide [Furosemide 20mg Tab] 20 mg PO DAILY 07/28/18 05/11/19 Gabapentin [Neurontin 800mg Tab] 800 mg PO QID 07/28/18 05/11/19 Lisinopril [Lisinopril 10mg Tab] 10 mg PO DAILY 07/28/18 05/11/19 Loratadine [Claritin] 10 mg PO DAILY 07/28/18 05/11/19 Omeprazole [Omeprazole 20mg 20 mg PO QODHS 07/28/18 05/11/19 Capsule] PHENobarbital [PHENobarbital 64.8 mg PO DAILY 07/28/18 05/11/19 32.4mg Tablet] Sertraline HCl [Zoloft] 100 mg PO DAILY 07/28/18 05/11/19 carBAMazepine [carBAMazepine 200mg 400 mg PO BID 07/28/18 05/11/19 Tablet] levETIRAcetam [Levetiracetam] 1,000 mg PO BID 07/28/18 05/11/19 Acetaminophen [Tylenol 500mg 500 mg PO QIDP PRN 08/26/18 05/11/19 tablet] Ibuprofen [Motrin 600mg 600 mg PO BID 08/26/18 05/11/19 Tablet] Lactulose [Lactulose 20gm/30ml 20 gm PO DAILYP PRN 08/26/18 05/11/19 Oral Soln] Calcium Carbonate/Vitamin D3 1 each PO BID 05/06/19 05/11/19 [Oyster Shell 250-Vit D3 125 Tb] Carboxymethyl/Gly/Poly80/Pf 1 drop OP BID 05/06/19 05/11/19 [Refresh Optive Advanced Drops] Icosapent Ethyl [Vascepa] 2 cap PO BID 05/06/19 05/11/19 Propylene Glycol/Peg 400 [Systane 2 drp OP HS 05/06/19 05/11/19 Gel Eye Drops] Sennosides [Senna] 8.6 mg PO DAILYP PRN 05/06/19 05/11/19 hydrOXYzine HCl [Hydroxyzine HCl] 25 mg PO TID 05/06/19 05/11/19 Docusate Sodium [Colace 250mg 250 mg PO BID 05/07/19 05/11/19 capsule] Vitamin B Complex Vit C No.3 [B 1 each PO DAILY 05/07/19 05/11/19 Complex with Vitamin C] Magic Mouthwash [Magic 15 ml PO QID 05/11/19 05/11/19 Mouthwash;240mL [place]] Ofloxacin [Ocuflox 0.3% OPHTH 0 ml OP Q4H 05/11/19 05/11/19 drops 5mL] Allergies Allergy/AdvReac Type Severity Reaction Status Date / Time latex Allergy Mild Unknown Verified 05/07/19 13:04 allergy reaction banana Allergy Unknown Unknown Verified 05/07/19 13:04 allergy reaction chocolate flavor Allergy Unknown Unknown Verified 05/07/19 13:04 allergy reaction [facility] History - Hepatitis A Screen Drug use history?: No High risk sexual behaviors?: No History of sexually transmitted infection?: No Currently employed?: No Childcare worker?: No Do you have indoor plumbing?: Yes Do you have electricity?: Yes Attestation statement:: This patient has been screened for Hepatitis A risk factors. I have reviewed the patient's past medical history: Yes Medical History: Reports:: Anxiety, Chronic Obstructive Pulmonary Disease (COPD), Congenital Heart Disease, Hyperlipidemia, Hypertension Denies:: Diabetes Mellitus Type 1, Diabetes Mellitus Type 2 Other Surgeries: Yes: Other Comment: Unable to determine. - Social History Smoking Status: Never smoker Alcohol Intake: never Occupational Status: retired, disabled Housing: [facility]dc Household Members: none, other - Psychiatric History Pschychiatric History:: Reports:: Anxiety Family Hx:: Unable to obtain ROS Obtained: Yes All systems reviewed & no additional complaints, Yes unobtainable due to mental condition - Constitutional Constitutional: Reports poor appetite, Reports weakness - ENT Ears, Nose, Mouth, and Throat: Reports vertigo/dizziness - Cardiovascular Cardiovascular: Denies chest pain, Denies dyspnea - Respiratory Respiratory: No cough - Gastrointestinal Gastrointestingal: Reports: other (per fdc). Denies: abdominal pain, diarrhea, vomiting blood, bright red blood in stools, black, tarry stools - Musculoskeletal Musculoskeletal: Denies joint pain, Denies joint stiffness, Denies joint s welling - Integumentary/Breasts Skin/Breast: Denies redness, Denies rash - Neurologic Neurologic: Denies behavioral changes, Denies confusion Physical Exam - General General appearance: alert, anxious, lethargic - Head Head exam: atraumatic, normocephalic, normal inspection - Eye Eye exam: Present: normal appearance, PERRL, EOMI - ENT ENT exam: Present: mucous membranes dry - Chest Chest inspection: Present: normal inspection, symmetric chest wall rise. Absent: tenderness - Respiratory Respiratory exam: Present: normal lung sounds bilaterally. Absent: respiratory distress - Cardiovascular Cardiovascular exam: Present: regular rate, normal rhythm. Absent: JVD - Abdominal Exam Abdominal exam: Present: soft, normal bowel sounds. Absent: distention, tenderness, guarding - Extremities Exam Extremities exam: Present: normal inspection - Neurological Exam Neurological exam: Present: alert, CN II-XII intact, other (mental retardation). Absent: oriented X3 - Psychiatric Psychiatric exam: Present: agitated, other (wanna go home) - Skin Skin exam: Present: warm, dry, intact, normal color
[2019-06-16 19:54] LABS: Microscopic, Urine URINE MICROSCOPIC (MICROSCOPIC)
[2019-06-16 19:57] LABS: Appearance,Urine CLEAR (Clear); Bilirubin,Urine Negative (Negative); Blood, Urine Negative (Negative); Color,Urine YELLOW (Yellow); Glucose,Urine (UA) Negative (Negative); Ketones,Urine Negative (Negative); Leukocyte Esterase,Urine Negative (Negative); PH,Urine 5.5 (5.0-8.5); Protein,Urine TRACE (Negative); Specific Gravity, Urine 1.015 (1.005-1.030); Urobilinogen,Urine 0.2 EU/dl (0.2)
[2019-06-16 20:17] LABS: Bacteria,Urine 2+ /lpf; RBC,Urine Occasional #/hpf (0-3)
[2019-06-17 06:59] LABS: Basophils # 0.1 K/mm3 (0-0.2); Eosinophils # 0.3 K/mm3 (0.0-0.4); Eosinophils % 4.9 % (0.1-12.0); Hematocrit 30.6 % (37.0-47.0); Hemoglobin 9.7 g/dL (12.2-16.2); Lymphocytes # 1.6 K/mm3 (0.7-4.5); Lymphocytes % 23.5 % (10-50); Mean Corpuscular HGB Conc 31.6 g/dL (31.8-35.4); Mean Corpuscular Volume 94.9 fl (81-99); Mean Platelet Volume 8.1 fl (7.4-10.4); Monocytes # 0.3 K/mm3 (0.1-1.0); Monocytes % 4.8 % (1.7-9.3); Neutrophils # 4.4 K/mm3 (1.8-7.8); Neutrophils % 65.8 % (37.0-80.0); Platelet Count 302 K/mm3 (142-424); Red Blood Count 3.23 M/mm3 (4.20-5.40); Red Cell Distribution Width 14.1 % (11.5-17.5); White Blood Count 6.7 K/mm3 (4.8-10.8)
--- NOTE | 2019-06-17 07:12 | History & Physical Report ---
*Admission Date: 06/16/19 *Chief complaint: Poor p.o. intake, sent from longterm *History of present illness: 68-year-old female longterm rapid incident at [facility] was sent to the emergency department because of several days of poor p.o. intake. Clearly this is not the first time patient has exhibited such behavior. There is no family at bedside and patient can provide limited history. There was no vomiting or diarrhea. Patient does admit to pain and based on interviewing I believe that it is in her legs. She denies falls. She denies pain with urination. Patient was evaluated in the emergency department and was found to have acute kidney injury. IV was established in the breast and patient was admitted on IV fluids. She denies hunger or thirst. [facility] History I have reviewed the patient's past medical history: Yes Medical History: Reports:: Anxiety, Congestive Heart Failure, Chronic Obstructive Pulmonary Disease (COPD), Congenital Heart Disease, Hyperlipidemia, Hypertension Denies:: Cancer, Diabetes Mellitus Type 1, Diabetes Mellitus Type 2, MRSA *Have you ever received a pneumonia vaccine?: Yes *Have you received a flu vaccine this season?: Yes Other Surgeries: Yes: Other Amputation: No - *Social History Smoking Status: Never smoker Alcohol Intake: never *Occupational Status:: retired, disabled Housing: longterm Household Members: none, other *Travel in the last 8 weeks: None - Psychiatric History Pschychiatric History:: Reports:: Anxiety Family Hx:: Unable to obtain Review of Systems - Constitutional Reports anorexia, Reports lack of energy, Denies body ache(s), Denies chills - *Cardiovascular Denies chest pain - *Respiratory Denies cough, Denies shortness of breath - *Gastrointestinal Denies abdominal pain - *Musculoskeletal Reports abnormal walking - *Neurologic Reports dizziness, Reports weakness, Denies behavioral changes, Denies confusion Meds Home Medications Medication Instructions Recorded Confirmed Type Amlodipine Besylate [Amlodipine 10 mg PO DAILY 07/28/18 06/16/19 History 10mg Tab] Atorvastatin Calcium [Atorvastatin 40 mg PO HS 07/28/18 06/16/19 History 40mg Tab] Furosemide [Furosemide 20mg Tab] 20 mg PO DAILY 07/28/18 06/16/19 History Gabapentin [Neurontin 800mg Tab] 800 mg PO QID 07/28/18 06/16/19 History Lisinopril [Lisinopril 10mg Tab] 10 mg PO DAILY 07/28/18 06/16/19 History Loratadine [Claritin] 10 mg PO DAILY 07/28/18 06/16/19 History Omeprazole [Omeprazole 20mg 20 mg PO QODHS 07/28/18 06/16/19 History Capsule] PHENobarbital [PHENobarbital 64.8 mg PO DAILY 07/28/18 06/16/19 History 32.4mg Tablet] Sertraline HCl [Zoloft] 100 mg PO DAILY 07/28/18 06/16/19 History carBAMazepine [carBAMazepine 200mg 400 mg PO BID 07/28/18 06/16/19 History Tablet] levETIRAcetam [Levetiracetam] 500 mg PO BID 07/28/18 06/16/19 History Acetaminophen [Tylenol 500mg 500 mg PO QIDP PRN 08/26/18 06/16/19 History tablet] Ibuprofen [Motrin 600mg 600 mg PO BID 08/26/18 06/16/19 History Tablet] Lactulose [Lactulose 20gm/30ml 20 gm PO DAILYP PRN 08/26/18 06/16/19 History Oral Soln] Calcium Carbonate/Vitamin D3 1 each PO BID 05/06/19 06/16/19 History [Oyster Shell 250-Vit D3 125 Tb] Carboxymethyl/Gly/Poly80/Pf 1 drop OP BID 05/06/19 06/16/19 History [Refresh Optive Advanced Drops] Icosapent Ethyl [Vascepa] 2 cap PO BID 05/06/19 06/16/19 History Propylene Glycol/Peg 400 [Systane 2 drp OP HS 05/06/19 06/16/19 History Gel Eye Drops] Sennosides [Senna] 8.6 mg PO DAILYP PRN 05/06/19 06/16/19 History hydrOXYzine HCl [Hydroxyzine HCl] 25 mg PO TID 05/06/19 06/16/19 History Docusate Sodium [Colace 250mg 250 mg PO BID 05/07/19 06/16/19 History capsule] Vitamin B Complex Vit C No.3 [B 1 each PO DAILY 05/07/19 06/16/19 History Complex with Vitamin C] Allergies Allergy/AdvReac Type Severity Reaction Status Date / Time latex Allergy Mild Unknown Verified 06/16/19 21:47 allergy reaction banana Allergy Unknown Unknown Verified 06/16/19 21:47 allergy reaction chocolate flavor Allergy Unknown Unknown Verified 06/16/19 21:47 allergy reaction Exam Vital signs and Labs for Last 24 Hours: Temp Pulse Resp BP Pulse Ox 97.9 F 83 17 136/64 98 06/17/19 04:00 06/17/19 04:00 06/17/19 04:00 06/17/19 04:00 06/17/19 04:00 Laboratory Results - last 24 hr 06/16/19 16:36: WBC 7.7, RBC 3.57 L, Hgb 10.6 L, Hct 33.6 L, MCV 94.0, MCH 29.8, MCHC 31.7 L, RDW 14.1, Plt Count 349, MPV 9.6, Neut % (Auto) 79.6, Lymph % (Auto) 14.7, [place] % (Auto) 3.9, Eos % (Auto) 1.2, Baso % (Auto) 0.6, Neut # (Auto) 6.1, Lymph # (Auto) 1.1, [place] # (Auto) 0.3, Eos # (Auto) 0.1, Baso # (Auto) 0.1 06/16/19 16:36: Sodium 143, Potassium 3.6, Chloride 102, Carbon Dioxide 23, Anion Gap 21.6 H, BUN 64 H, Creatinine 2.94 H, Estimated Creat Clear 27, Estimated GFR 16 L*, Est GFR ( Amer) 19 L*, Glucose 115 H, Calcium 9.6, Total Bilirubin 0.4, AST 12 L, ALT 23, Alkaline Phosphatase 104, Total Protein 7.3, Albumin 3.4, Globulin 3.9 H, Albumin/Globulin Ratio 0.9 L 06/16/19 19:49: Urine Color Yellow, Urine Appearance Clear, Urine pH 5.5, Ur Specific [place] 1.015, Urine Protein Trace, Urine Glucose (UA) Negative, Urine Ketones Negative, Urine Blood Negative, Urine Nitrate Negative, Urine Bilirubin Negative, Urine Urobilinogen 0.2, Ur Leukocyte Esterase Negative, Urine RBC Occasional, Urine WBC 5-10, Ur Squamous Epith Cells 5-10, Urine Bacteria 2+ 06/16/19 23:35: Troponin I 0.05 06/17/19 05:45: Troponin I 0.04 06/17/19 05:45: WBC 6.7, RBC 3.23 L, Hgb 9.7 L, Hct 30.6 L, MCV 94.9, MCH 29.9, MCHC 31.6 L, RDW 14.1, Plt Count 302, MPV 8.1, Neut % (Auto) 65.8, Lymph % (Auto) 23.5, [place] % (Auto) 4.8, Eos % (Auto) 4.9, Baso % (Auto) 1.0, Neut # (Auto) 4.4, Lymph # (Auto) 1.6, [place] # (Auto) 0.3, Eos # (Auto) 0.3, Baso # (Auto) 0.1 I & O for Last 24 hours: Intake & Output 06/14/19 06/15/19 06/16/19 06/17/19 11:59 11:59 11:59 11:59 Intake Total 3268 / 3268 Output Total 1000 / 1000 Balance 2268 / 2268 Weight 155 lb 2 oz Narrative: She appears in no distress. She is pale. Oropharynx reveals tacky mucous membranes. Neck is without lymphadenopathy or jugular venous distention. Lungs are clear. Heart has a regular rate and rhythm. Abdomen is soft and nontender. Extremities are warm to the touch and without edema. Patient has full passive and active range of motion in the knees, ankles, hips and does not appear to be in any pain. Graff catheter is anchored. Patient can answer yes/no questions. Assessment and Plan (1) BETHANY (acute kidney injury) Current visit: Yes Status: Acute Category: Medical Code(s): N17.9 - Acute kidney failure, unspecified (2) Dehydration Current visit: Yes Status: Acute Category: Medical Code(s): E86.0 - Dehydration (3) Acute kidney injury superimposed on chronic kidney disease Current visit: No Status: Acute Category: Medical Code(s): N17.9 - Acute kidney failure, unspecified; N18.9 - Chronic kidney disease, unspecified - Assessment and plan all Dx Assessment and Plan for all problems:: Continue IV fluid rehydration. Await BMP this morning. Full liquid diet will be ordered. Medication adjustments will be made. Patient's gabapentin will be held. Antihypertensives will be held. Diuretics will be discontinued.
[2019-06-17 08:41] LABS: Anion Gap 18.2 mEq/L (5-15)
--- NOTE | 2019-06-17 09:44 | Pharmacy Consult Notes ---
[facility] Pharmacy VTE Monitoring - Patient Demographics Admission date: 06/16/19 Report Date: 06/17/19 Time: 09:44 Allergies/Adverse Reactions: Patient Allergies latex Allergy (Mild, Verified 06/16/19 21:47) Unknown allergy reaction banana Allergy (Unknown, Verified 06/16/19 21:47) Unknown allergy reaction chocolate flavor Allergy (Unknown, Verified 06/16/19 21:47) Unknown allergy reaction Height: 1.65 m Weight: 70.364 kg Patient Problems: Current Active Problems BETHANY (acute kidney injury) (Acute) Dehydration (Acute) - VTE Risk Labs: VTE Related Lab Results Hgb 9.7 g/dL (12.2-16.2) L 06/17/19 05:45 Hct 30.6 % (37.0-47.0) L 06/17/19 05:45 Plt Count 302 K/mm3 (142-424) 06/17/19 05:45 BUN 49 mg/dL (7-18) H 06/17/19 05:45 Creatinine 1.86 mg/dL (0.55-1.02) H D 06/17/19 05:45 Estimated Creat Clear 33 mL/min (50-200) 06/17/19 05:45 Was VTE Risk Assessment Performed: Yes VTE Score: 5 VTE Risk Level: Low Risk - Prophylaxis VTE Prophylaxis Ordered?: Yes Types of VTE Prophylaxis: TEDS Knee High Location of Applied Device: Bilateral Lower Extremeties
[2019-06-18 07:50] LABS: Anion Gap 17.8 mEq/L (5-15)
--- NOTE | 2019-06-18 08:20 | Discharge Summary ---
General - General Admission date:: 06/16/19 Discharge date: 06/18/19 HPI HPI: 68-year-old female long-term rapid incident at [facility] was sent to the emergency department because of several days of poor p.o. intake. Clearly this is not the first time patient has exhibited such behavior. There is no family at bedside and patient can provide limited history. There was no vomiting or diarrhea. Patient does admit to pain and based on interviewing I believe that it is in her legs. She denies falls. She denies pain with urination. Patient was evaluated in the emergency department and was found to have acute kidney injury. IV was established in the breast and patient was admitted on IV fluids. She denies hunger or thirst. Hospital Course Hospital Course: Patient was admitted and placed on normal saline at 150 mL's per hour. On the morning of June 17 after significant improvement in BUN and creatinine overnight fluid rate was decreased to 75 mL's an hour. Hydration status was continually monitored. Patient had good urine output. On the morning of June 18 BUN and creatinine had returned to normal. It was reported when patient presented from the facility where she resides that she had had a poor appetite over the preceding 24 to 48 hours. Her appetite remained poor while hospitalized. Even once the patient became more alert she refused to eat or drink. She did not have any difficulty swallowing and she did not have any abdominal pain. Poor appetite may be contributed to by her acute kidney injury and possibly some of her medications in combination with her acute kidney injury. Nonetheless patient was able to swallow effectively she simply refused to eat or drink. Once patient had returned to baseline she was discharged home. I have discontinued several of her home medications as I believe these contributed to her acute kidney injury. Mental status: Below average (baseline) Rehab potential: Fair Prognosis: Fair Objective Vital signs: Temp Pulse Resp BP Pulse Ox 99.0 F 77 18 134/59 L 97 06/18/19 07:53 06/18/19 07:53 06/18/19 07:53 06/18/19 07:53 06/18/19 07:53 no acute distress - *Routine Respiratory Exam Present: CTA bilaterally - *Routine Cardiovascular Exam Present: RRR - *Routine Abdominal Exam Present: soft, normoactive bowel sounds - *Routine Extremities Exam Present: clubbing, edema Results Labs on day of discharge: Labs from last 24 hours 06/18/19 06/17/19 06/17/19 06:15 05:55 05:45 Sodium 146 H 146 H Potassium 2.8 L* 3.2 L Chloride 109 H 109 H Carbon Dioxide 22 22 Anion Gap 17.8 H 18.2 H BUN 24 H D 49 H Creatinine 0.95 D 1.86 H D Estimated Creat Clear 60 33 Estimated GFR 59 27 L Est GFR ( Amer) 71 D 33 L D Glucose 81 94 Calcium 8.0 L 8.0 L D Phenobarbital 15.6 Preliminary micro results at discharge 06/16/19 19:49 Urine Culture - Preliminary Urine,Catheterized DS: Diagnosis - Discharge Diagnosis (1) BETHANY (acute kidney injury) Status: Acute (2) Dehydration Status: Acute (3) Acute kidney injury superimposed on chronic kidney disease Status: Acute Discharge Plan - Patient Discharge Instructions ACTIVITY: Continue current activity DIET: continue same diet Patient Instructions: Seizure Disorder -- Adult, Dehydration, DI for Dehydration -- Adult, Acute Renal Failure - Follow up Plan Disposition: [facility] Home Medications: Home Medications Medication Instructions Recorded Confirmed Type Amlodipine Besylate [Amlodipine 10 mg PO DAILY 07/28/18 06/17/19 History 10mg Tab] Atorvastatin Calcium [Atorvastatin 40 mg PO HS 07/28/18 06/17/19 History 40mg Tab] Furosemide [Furosemide 20mg Tab] 20 mg PO DAILY 07/28/18 06/17/19 History Gabapentin [Neurontin 800mg Tab] 800 mg PO QID 07/28/18 06/17/19 History Lisinopril [Lisinopril 10mg Tab] 10 mg PO DAILY 07/28/18 06/17/19 History Loratadine [Claritin] 10 mg PO HS 07/28/18 06/17/19 History Omeprazole [Omeprazole 20mg 20 mg PO QODHS 07/28/18 06/17/19 History Capsule] PHENobarbital [PHENobarbital 64.8 mg PO HS 07/28/18 06/17/19 History 32.4mg Tablet] Sertraline HCl [Zoloft] 100 mg PO DAILY 07/28/18 06/17/19 History carBAMazepine [carBAMazepine 200mg 400 mg PO BID 07/28/18 06/16/19 History Tablet] levETIRAcetam [Levetiracetam] 500 mg PO BID 07/28/18 06/17/19 History Acetaminophen [Tylenol 500mg 500 mg PO Q6HP PRN 08/26/18 06/17/19 History tablet] Ibuprofen [Motrin 600mg 600 mg PO BID 08/26/18 06/17/19 History Tablet] Lactulose [Lactulose 20gm/30ml 20 gm PO DAILYP PRN 08/26/18 06/16/19 History Oral Soln] Calcium Carbonate/Vitamin D3 1 each PO BID 05/06/19 06/17/19 History [Oyster Shell 250-Vit D3 125 Tb] Carboxymethyl/Gly/Poly80/Pf 1 drop OP BID 05/06/19 06/17/19 History [Refresh Optive Advanced Drops] Icosapent Ethyl [Vascepa] 2 gm PO BID 05/06/19 06/17/19 History Propylene Glycol/Peg 400 [Systane 2 drp OP HS 05/06/19 06/17/19 History Gel Eye Drops] Sennosides [Senna] 8.6 mg PO BIDP PRN 05/06/19 06/17/19 History hydrOXYzine HCl [Hydroxyzine HCl] 25 mg PO TID 05/06/19 06/16/19 History Docusate Sodium [Colace 250mg 250 mg PO BID 05/07/19 06/17/19 History capsule] Vitamin B Complex Vit C No.3 [B 1 each PO HS 05/07/19 06/17/19 History Complex with Vitamin C] Prescriptions/Medication Reconciliation: Continued Sertraline HCl [Zoloft] 100 mg PO DAILY PHENobarbital [PHENobarbital 32.4mg Tablet] 64.8 mg PO HS Loratadine [Claritin] 10 mg PO HS levETIRAcetam [Levetiracetam] 500 mg PO BID Atorvastatin Calcium [Atorvastatin 40mg Tab] 40 mg PO HS Acetaminophen [Tylenol 500mg tablet] 500 mg PO Q6HP PRN PRN Reason: fever or pain Icosapent Ethyl [Vascepa] 2 gm PO BID Sennosides [Senna] 8.6 mg PO BIDP PRN PRN Reason: Constipation Propylene Glycol/Peg 400 [Systane Gel Eye Drops] 2 drp OP HS Docusate Sodium [Colace 250mg capsule] 250 mg PO BID Amlodipine Besylate [Amlodipine 10mg Tab] 10 mg PO DAILY Omeprazole [Omeprazole 20mg Capsule] 20 mg PO QODHS carBAMazepine [carBAMazepine 200mg Tablet] 400 mg PO BID Lactulose [Lactulose 20gm/30ml Oral Soln] 20 gm PO DAILYP PRN PRN Reason: Constipation Calcium Carbonate/Vitamin D3 [Oyster Shell 250-Vit D3 125 Tb] 1 each PO BID Carboxymethyl/Gly/Poly80/Pf [Refresh Optive Advanced Drops] 1 drop OP BID hydrOXYzine HCl [Hydroxyzine HCl] 25 mg PO TID Vitamin B Complex Vit C No.3 [B Complex with Vitamin C] 1 each PO HS Discontinued Lisinopril [Lisinopril 10mg Tab] 10 mg PO DAILY Gabapentin [Neurontin 800mg Tab] 800 mg PO QID Furosemide [Furosemide 20mg Tab] 20 mg PO DAILY Ibuprofen [Motrin 600mg Tablet] 600 mg PO BID
== END 2019-06-18 11:30 | DRG 683 ==
LOC: 2ND 14:55 → ER 14:55 → OBSVTOIN 20:58 → 2ND 20:59
PROVIDERS: ADMIT Family Medicine; ATTEND Family Medicine

== ENCOUNTER 2019-06-21 09:46 | Observation (INO) ==
--- NOTE | 2019-06-21 09:51 | Emergency Department Note ---
ED Disposition Clinical Impression: Hypernatremia, Hypokalemia, Elevated troponin, Inadequate oral intake Fall Qualifiers: Encounter type: initial encounter Qualified Code(s): W19.XXXA - Unspecified fall, initial encounter Disposition: Admitted as Observation Condition on Discharge: Fair Referrals: Provider,MD Yrn [Referring] - - Critical Care Critical Care Time: No Attestation: On , the high probability of a clinically significant, sudden or life threatening deterioration of the following system(s) required my full and direct attention, intervention and personal management. The time I documented below is in addition to time spent performing reported procedures but includes the following listed in this critical care notation. Medical Decision Making - Wong Inquiry Pt receiving controlled substance: No Vital Signs: 06/21/19 09:40 06/21/19 10:07 06/21/19 11:00 Temperature 98.2 F Temperature Source Oral Pulse Rate [Right Radial] 102 H 101 H Respiratory Rate 16 16 Blood Pressure [Right Arm] 140/95 H 150/77 H 151/91 H Blood Pressure Mean [Right Arm] 110 101 111 Blood Pressure Source [Right Arm] Automatic Cuff Automatic Cuff Automatic Cuff Blood Pressure Position [Right Arm] Supine Supine Sitting 02 Sat by Pulse Oximetry 97 97 Oxygen Delivery Method Room Air Room Air 06/21/19 11:30 06/21/19 12:00 06/21/19 12:30 Temperature Temperature Source Pulse Rate [Right Radial] 86 92 H 92 H Respiratory Rate 17 17 Blood Pressure [Right Arm] 147/83 H 154/72 H 183/88 H Blood Pressure Mean [Right Arm] 104 99 119 Blood Pressure Source [Right Arm] Automatic Cuff Automatic Cuff Blood Pressure Position [Right Arm] Sitting Sitting 02 Sat by Pulse Oximetry 97 97 97 Oxygen Delivery Method Room Air Room Air 06/21/19 13:30 Temperature Temperature Source Pulse Rate [Right Radial] 106 H Respiratory Rate Blood Pressure [Right Arm] 180/77 H Blood Pressure Mean [Right Arm] 111 Blood Pressure Source [Right Arm] Blood Pressure Position [Right Arm] 02 Sat by Pulse Oximetry 98 Oxygen Delivery Method - Lab Data Lab Results 06/21/19 11:00: WBC 12.5 H, RBC 3.74 L, Hgb 11.2 L, Hct 33.7 L, MCV 90.0, MCH 29.9, MCHC 33.2, RDW 14.8, Plt Count 427 H, MPV 7.7, Neut % (Auto) 86.5 H, Lymph % (Auto) 7.6 L, [place] % (Auto) 5.0, Eos % (Auto) 0.4, Baso % (Auto) 0.5, Neut # (Auto) 10.8 H, Lymph # (Auto) 1.0, [place] # (Auto) 0.6, Eos # (Auto) 0.1, Baso # (Auto) 0.1, Total Counted 100, Neutrophils % (Manual) 87 H, Lymphocytes % (Manual) 10, Monocytes % (Manual) 3, Platelet Estimate Normal, Stomatocytes 1+ 06/21/19 11:05: Urine Color Yellow, Urine Appearance Clear, Urine pH 6.0, Ur Specific [place] 1.025, Urine Protein 2+, Urine Glucose (UA) Negative, Urine Ketones 3+, Urine Blood 2+, Urine Nitrate Negative, Urine Bilirubin 2+ A, Urine Urobilinogen 0.2, Ur Leukocyte Esterase Negative, Urine RBC 3-5, Urine WBC Occasional, Ur Squamous Epith Cells Occasional, Amorphous Sediment Trace, Urine Bacteria 1+ 06/21/19 11:15: Sodium 152 H*, Potassium 3.1 L, Chloride 108 H, Carbon Dioxide 20 L, Anion Gap 27.1 H, BUN 14, Creatinine 1.20 H, Estimated Creat Clear 46, Estimated GFR 45 L, Est GFR ( Amer) 54 L, Glucose 128 H, Calcium 9.2, Total Bilirubin 0.5, AST 35, ALT 35, Alkaline Phosphatase 113, Troponin I 0.09 H , Total Protein 7.9, Albumin 3.5, Globulin 4.4 H, Albumin/Globulin Ratio 0.8 L, Carbamazepine 0.5 L, Phenobarbital 16.0 Result diagrams: 06/21/19 11:00 06/21/19 11:15 - Radiology Data #1 Image(s): Chest, Pelvis Image Reviewed: Yes I reviewed the patient's radiology image, Yes I have revi ewed radiologist's interpretation CXR interpreted by radiologist: FINDINGS: The cardiomediastinal silhouette and pulmonary vascularity are within normal limits. No lobar consolidation or collapse. There are minimal atelectatic changes in the right lung base with slightly elevated right hemidiaphragm and minimal blunting of the right CP angle. The left lung is clear. IMPRESSION: Minimal right basilar atelectasis with minimal blunting of the right CP angle Dictated By: Matt Dunlap MD 06/21/19 1115 X-rays interpreted by Oskar Baeza MD.: Pelvis: no fracture or dislocation - CT Data CT Scan: Head, C-Spine Time Received: 11:[address] Reviewed: Yes: I have viewed the radiologist's interpretation Findings Narrative: Head: FINDINGS: No midline shift, mass effect, intracranial hemorrhage, hydrocephalus, or extra-axial fluid collection is evident. The calvarium has an unremarkable appearance. No mastoid effusion. No sinus air-fluid levels.. IMPRESSION: No change with no acute finding Dictated By: Matt Dunlap MD 06/21/19 1108 C-spine: FINDINGS: There is normal alignment. There is mild retrolisthesis of C2 on C3 of 3 mm unchanged. No acute fracture or dislocation. C3-C4: Degenerative disc disease with endplate hypertrophic change with canal stenosis. C4-C5: Degenerative disc disease with endplate hypertrophic change, canal stenosis, bilateral lateral recess and foraminal narrowing greater on the left. C5-C6: Degenerative disc disease with canal stenosis with left-sided foraminal narrowing C6-C7: Degenerative disc disease with endplate hypertrophic change with right lateral recess and foraminal narrowing. C7-T1: Degenerative disc disease. No acute finding in the lung apices. IMPRESSION: 1. No acute fracture. 2. Multilevel cervical spondylosis with degenerative disc disease and canal stenosis. PLEASE SEE ABOVE FOR DETAILED DESCRIPTION AT EACH LEVEL Dictated By: Matt Dunlap MD 06/21/19 1110 - ECG Data Tracing #1 EKG interpreted by Oskar Baeza MD: Rhythm: sinus tachycardia Rate: 106 [place]: normal Ectopy: none Conduction: normal ST Segment Changes: none T Wave Changes: none Q Waves: none No evidence of acute ischemia or injury Baseline artifact and wander present, but I consider the EKG adequate for accurate interpretation. - Physician Consults Physician Consulted: Horace Time: 12:18 Reason -: Pt condition Comment/Response: Discussed case. Requests surgery consult re G-tube. Additional Consult: Jorge Time: 12:28 Reason -: Surgical Eval/Care Comment/Response: States PEG tube can likely be done tomorrow by Dr. Griffiths, after IV fluids and electrolyte correction, serial cardiac enzymes. Additional Consult: Justine Time: 13:47 Reason -: Admission Comment/Response: Agrees to admit the patient to the hospital. We discussed the patient's clinical information, including history, exam, laboratory and radiology results and ED course. Per hospital procedure, I will write temporary bridge inpatient orders on the patient. Specific orders requested by the a dmitting physician: IV fluids. Consult surgery. Serial troponins. Medical Decision Narrative: Admitted here 06/16 - 06/18 for BETHANY, dehydration. Poor po intake prior to admit and during admission noted. General Adult HPI - General Chief complaint: Fall Stated complaint: UNWITNESSED FALL Time Seen by Provider: 06/21/19 09:51 Mode of Arrival: EMS Limitations: Physical Limitations Description of Symptoms (Recalled from ER Triage Doc. by RN): PT BROUGHT IN VIA EMS FROM [facility] TO [facility] WHERE STAFF STATES THAT PT HAD AN UNWITNESSED FALL FROM BED THIS AM. STAFF REPORTED THAT ONE PUPIL WAS LARGER THAN THE OTHER AND REACTIVE TIME WAS SLUGGISH. UPON ARRIVAL TO ED PUPILS ARE EQUAL AND REACTIVE. PT OPENS EYES TO VERBAL STIMULI AND SMILED AT STAFF. PT DOES HAVE REDNESS AND DRAINAGE TO BILATERAL EYES. NO PAIN REPORTED. - History of Present Illness HPI narrative: Brought in by ambulance from [facility]. The patient is nonverbal, she is unable to give any history. History is obtained from reports sent from the long term and from our nursing staff, who took verbal report. The written report does not mention a fall, just states that her pupils were unequal with the left pupil larger and sluggish. Our nursing staff also reports that verbally, they were told that the patient had been found on the floor, unw itnessed fall. They were also told that the patient has not taken her medications for the past 2 days "because they are trying to get a G-tube". - Related Data Home Medications Medication Instructions Recorded Confirmed Amlodipine Besylate [Amlodipine 10 mg PO DAILY 07/28/18 06/17/19 10mg Tab] Atorvastatin Calcium [Atorvastatin 40 mg PO HS 07/28/18 06/17/19 40mg Tab] Loratadine [Claritin] 10 mg PO HS 07/28/18 06/17/19 Omeprazole [Omeprazole 20mg 20 mg PO QODHS 07/28/18 06/17/19 Capsule] PHENobarbital [PHENobarbital 64.8 mg PO HS 07/28/18 06/17/19 32.4mg Tablet] Sertraline HCl [Zoloft] 100 mg PO DAILY 07/28/18 06/17/19 carBAMazepine [carBAMazepine 200mg 400 mg PO BID 07/28/18 06/16/19 Tablet] levETIRAcetam [Levetiracetam] 500 mg PO BID 07/28/18 06/17/19 Acetaminophen [Tylenol 500mg 500 mg PO Q6HP PRN 08/26/18 06/17/19 tablet] Lactulose [Lactulose 20gm/30ml 20 gm PO DAILYP PRN 08/26/18 06/16/19 Oral Soln] Calcium Carbonate/Vitamin D3 1 each PO BID 05/06/19 06/17/19 [Oyster Shell 250-Vit D3 125 Tb] Carboxymethyl/Gly/Poly80/Pf 1 drop OP BID 05/06/19 06/17/19 [Refresh Optive Advanced Drops] Icosapent Ethyl [Vascepa] 2 gm PO BID 05/06/19 06/17/19 Propylene Glycol/Peg 400 [Systane 2 drp OP HS 05/06/19 06/17/19 Gel Eye Drops] Sennosides [Senna] 8.6 mg PO BIDP PRN 05/06/19 06/17/19 hydrOXYzine HCl [Hydroxyzine HCl] 25 mg PO TID 05/06/19 06/16/19 Docusate Sodium [Colace 250mg 250 mg PO BID 05/07/19 06/17/19 capsule] Vitamin B Complex Vit C No.3 [B 1 each PO HS 05/07/19 06/17/19 Complex with Vitamin C] Allergies Allergy/AdvReac Type Severity Reaction Status Date / Time latex Allergy Mild Unknown Verified 06/16/19 21:47 allergy reaction banana Allergy Unknown Unknown Verified 06/16/19 21:47 allergy reaction chocolate flavor Allergy Unknown Unknown Verified 06/16/19 21:47 allergy reaction [facility] History - Hepatitis A Screen Drug use history?: No High risk sexual behaviors?: No History of sexually transmitted infection?: No Currently employed?: No Childcare worker?: No Do you have indoor plumbing?: Yes Do you have electricity?: Yes Attestation statement:: This patient has been screened for Hepatitis A risk factors. I have reviewed the patient's past medical history: Yes Medical History: Reports:: Anxiety, Congestive Heart Failure, Chronic Obstructive Pulmonary Disease (COPD), Congenital Heart Disease, Hyperlipidemia, Hypertension Denies:: Cancer, Diabetes Mellitus Type 1, Diabetes Mellitus Type 2, MRSA Other Surgeries: Yes: Other Amputation: No Comment: Unable to determine. - Social History Smoking Status: Never smoker Alcohol Intake: never Occupational Status: retired, disabled Housing: long term Household Members: none, other - Psychiatric History Pschychiatric History:: Reports:: Anxiety Family Hx:: Unable to obtain ROS Obtained: Yes unobtainable due to mental condition Physical Exam - General General appearance: alert, in no apparent distress - Head Head exam: other (Puffy edema on the crown of the scalp without hematoma or laceration. Does not appear to be tender.) - Eye Eye exam: Present: PERRL, EOMI, conjunctival injection, other (Erythema of the eyelids and periorbital tissues bilaterally.) - Neck Neck exam: Present: normal inspection, trachea midline - Chest Chest inspection: Present: normal inspection - Respiratory Respiratory exam: Present: normal lung sounds bilaterally. Absent: respiratory distress - Cardiovascular Cardiovascular exam: Present: regular rate, normal rhythm, normal heart sounds - Abdominal Exam Abdominal exam: Present: soft. Absent: distention, tenderness, guarding - Extremities Exam Extremities exam: Present: other (No deformity, edema, or ecchymosis. Moves all 4 extremities.) - Neurological Exam Neurological exam: Present: alert - Skin Skin exam: Present: warm, dry
[2019-06-21 11:21] LABS: Microscopic, Urine URINE MICROSCOPIC (MICROSCOPIC)
[2019-06-21 11:25] LABS: Appearance,Urine CLEAR (Clear); Blood, Urine 2+ (Negative); Color,Urine YELLOW (Yellow); Glucose,Urine (UA) Negative (Negative); Ketones,Urine 3+ (Negative); Leukocyte Esterase,Urine Negative (Negative); Protein,Urine 2+ (Negative); Specific Gravity, Urine 1.025 (1.005-1.030); Urobilinogen,Urine 0.2 EU/dl (0.2)
[2019-06-21 11:26] LABS: Basophils # 0.1 K/mm3 (0-0.2); Basophils % 0.5 % (0.1-2.0); Eosinophils # 0.1 K/mm3 (0.0-0.4); Eosinophils % 0.4 % (0.1-12.0); Hematocrit 33.7 % (37.0-47.0); Hemoglobin 11.2 g/dL (12.2-16.2); Lymphocytes % 7.6 % (10-50); Mean Corpuscular HGB Conc 33.2 g/dL (31.8-35.4); Mean Platelet Volume 7.7 fl (7.4-10.4); Monocytes # 0.6 K/mm3 (0.1-1.0); Neutrophils # 10.8 K/mm3 (1.8-7.8); Neutrophils % 86.5 % (37.0-80.0); Platelet Count 427 K/mm3 (142-424); Red Blood Count 3.74 M/mm3 (4.20-5.40); Red Cell Distribution Width 14.8 % (11.5-17.5); White Blood Count 12.5 K/mm3 (4.8-10.8)
[2019-06-21 11:43] LABS: Bilirubin,Urine 2+ (Negative)
[2019-06-21 11:56] LABS: Albumin Level 3.5 gm/dL (3.4-5.0); Albumin/Globulin Ratio 0.8 (1.1-1.8); Anion Gap 27.1 mEq/L (5-15); Bilirubin,Total 0.5 mg/dL (0.2-1.0); Calcium 9.2 mg/dL (8.5-10.1); Carbamazepine (Tegretol) 0.5 ug/ml (4.0-12.0); Globulin 4.4 gm/dl (1.3-3.2); Total Protein,Serum 7.9 gm/dL (6.4-8.2)
[2019-06-21 11:56] LABS: Amorphous Sediment,Urine Trace /lpf; Bacteria,Urine 1+ /lpf; Squamous Epithelial Cell,Urine Occasional #/hpf (0-5); WBC,Urine Occasional #/hpf (0-3)
[2019-06-21 11:59] LABS: Lymphocytes % 10 % (10-50); Monocytes % 3 % (2-9); Neutrophils % 87 % (42-76); Total Cells Counted 100
[2019-06-21 12:01] LABS: Stomatocytes 1+
--- NOTE | 2019-06-21 15:20 | Pharmacy Consult Notes ---
[facility] Pharmacy VTE Monitoring - Patient Demographics Admission date: 06/21/19 Report Date: 06/21/19 Time: 15:20 Allergies/Adverse Reactions: Patient Allergies latex Allergy (Mild, Verified 06/16/19 21:47) Unknown allergy reaction banana Allergy (Unknown, Verified 06/16/19 21:47) Unknown allergy reaction chocolate flavor Allergy (Unknown, Verified 06/16/19 21:47) Unknown allergy reaction Height: 1.63 m Weight: 63.503 kg Patient Problems: Current Active Problems Fall (Acute) Hypernatremia (Acute) Hypokalemia (Acute) Elevated troponin (Acute) Inadequate oral intake (Acute) - VTE Risk Labs: VTE Related Lab Results Hgb 11.2 g/dL (12.2-16.2) L 06/21/19 11:00 Hct 33.7 % (37.0-47.0) L 06/21/19 11:00 Plt Count 427 K/mm3 (142-424) H 06/21/19 11:00 BUN 14 mg/dL (7-18) 06/21/19 11:15 Creatinine 1.20 mg/dL (0.55-1.02) H 06/21/19 11:15 Estimated Creat Clear 46 mL/min (50-200) 06/21/19 11:15 - Prophylaxis VTE Prophylaxis Ordered?: Yes Types of VTE Prophylaxis: TEDS Knee High Location of Applied Device: Bilateral Lower Extremeties - VTE Diagnosis Confirmed Treatment or plan recommended: Continue Current Treatment
--- NOTE | 2019-06-21 17:21 | History & Physical Report ---
*Admission Date: 06/21/19 *Chief complaint: Not eating *History of present illness: Ms. Riggs is a 68-year-old female with history of cerebral palsy and debility who resides [facility]. She was recently admitted due to decreased p.o. intake and infection. Discharged on the third back to the shelter. Presents to the ER today after falling and having concern for difference in pupillary constriction. Found to not have any head trauma in the ER however there is concern that she has not taken any p.o. intake in over a week now since prior to her previous admission. Family and shelter are interested in having G-tube placed and would like for her to be assessed for this. Also found to have some electrolyte disturbances with hyperkalemia, mild BETHANY. Admitted to medicine for further management and work-up. [facility] History I have reviewed the patient's past medical history: Yes (from records, unable to obtain from patient) Medical History: Reports:: Anxiety, Congestive Heart Failure, Chronic Obstructive Pulmonary Disease (COPD), Congenital Heart Disease, Hyperlipidemia, Hypertension Denies:: Cancer, Diabetes Mellitus Type 1, Diabetes Mellitus Type 2, MRSA *Have you ever received a pneumonia vaccine?: Yes *Have you received a flu vaccine this season?: Yes Other Surgeries: Yes: Other Amputation: No - *Social History Educational Level: Attended Grade School Smoking Status: Never smoker Alcohol Intake: never *Occupational Status:: retired, disabled Housing: shelter Household Members: none, other *Travel in the last 8 weeks: None - Psychiatric History Expresses thoughts of harming self/others: None Suicide Plan Description: No Plan Pschychiatric History:: Reports:: Anxiety Family Hx:: Unable to obtain Review of Systems - Review of Systems Review of systems:: unable to obtain (patient answers with head nods, no verbal answers.) Meds Home Medications Medication Instructions Recorded Confirmed Type Amlodipine Besylate [Amlodipine 10 mg PO DAILY 07/28/18 06/21/19 History 10mg Tab] Atorvastatin Calcium [Atorvastatin 40 mg PO DAILY 07/28/18 06/21/19 History 40mg Tab] Loratadine [Claritin] 10 mg PO HS 07/28/18 06/21/19 History Omeprazole [Omeprazole 20mg 20 mg PO QODHS 07/28/18 06/21/19 History Capsule] Sertraline HCl [Zoloft] 100 mg PO DAILY 07/28/18 06/21/19 History carBAMazepine [carBAMazepine 200mg 400 mg PO BID 07/28/18 06/21/19 History Tablet] levETIRAcetam [Levetiracetam] 500 mg PO BID 07/28/18 06/21/19 History Acetaminophen [Tylenol 500mg 500 mg PO Q6HP PRN 08/26/18 06/21/19 History tablet] Lactulose [Lactulose 20gm/30ml 20 gm PO DAILYP PRN 08/26/18 06/21/19 History Oral Soln] Calcium Carbonate/Vitamin D3 1 each PO BID 05/06/19 06/21/19 History [Oyster [place] 250-Vit D3 125 Tb] Carboxymethyl/Gly/Poly80/Pf 1 drop OP BID 05/06/19 06/21/19 History [Refresh Optive Advanced Drops] Icosapent Ethyl [Vascepa] 2 gm PO BID 05/06/19 06/21/19 History Propylene Glycol/Peg 400 [Systane 2 drp OP HS 05/06/19 06/21/19 History Gel Eye Drops] Sennosides [Senna] 8.6 mg PO BID 05/06/19 06/21/19 History hydrOXYzine HCl [Hydroxyzine HCl] 25 mg PO TID 05/06/19 06/21/19 History Docusate Sodium [Colace 250mg 250 mg PO BID 05/07/19 06/21/19 History capsule] Vitamin B Complex Vit C No.3 [B 1 each PO HS 05/07/19 06/21/19 History Complex with Vitamin C] Lisinopril [Lisinopril 10mg Tab] 10 mg PO DAILY 06/21/19 06/21/19 History PHENobarbital [Phenobarbital] 64.8 mg PO HS 06/21/19 06/21/19 History Allergies Allergy/AdvReac Type Severity Reaction Status Date / Time latex Allergy Mild Unknown Verified 06/16/19 21:47 allergy reaction banana Allergy Unknown Unknown Verified 06/16/19 21:47 allergy reaction chocolate flavor Allergy Unknown Unknown Verified 06/16/19 21:47 allergy reaction Exam Vital signs and Labs for Last 24 Hours: Temp Pulse Resp BP Pulse Ox 99.1 F 100 H 18 177/88 H 97 08/06/19 15:05 06/21/19 16:00 06/21/19 15:05 06/21/19 15:05 06/21/19 15:05 Laboratory Results - last 24 hr 06/21/19 11:00: WBC 12.5 H, RBC 3.74 L, Hgb 11.2 L, Hct 33.7 L, MCV 90.0, MCH 29.9, MCHC 33.2, RDW 14.8, Plt Count 427 H, MPV 7.7, Neut % (Auto) 86.5 H, Lymph % (Auto) 7.6 L, [place] % (Auto) 5.0, Eos % (Auto) 0.4, Baso % (Auto) 0.5, Neut # (Auto) 10.8 H, Lymph # (Auto) 1.0, [place] # (Auto) 0.6, Eos # (Auto) 0.1, Baso # (Auto) 0.1, Total Counted 100, Neutrophils % (Manual) 87 H, Lymphocytes % (Manual) 10, Monocytes % (Manual) 3, Platelet Estimate Normal, Stomatocytes 1+ 06/21/19 11:05: Urine Color Yellow, Urine Appearance Clear, Urine pH 6.0, Ur Specific [place] 1.025, Urine Protein 2+, Urine Glucose (UA) Negative, Urine Ketones 3+, Urine Blood 2+, Urine Nitrate Negative, Urine Bilirubin 2+ A, Urine Urobilinogen 0.2, Ur Leukocyte Esterase Negative, Urine RBC 3-5, Urine WBC Occasional, Ur Squamous Epith Cells Occasional, Amorphous Sediment Trace, Urine Bacteria 1+ 06/21/19 11:15: Sodium 152 H*, Potassium 3.1 L, Chloride 108 H, Carbon Dioxide 20 L, Anion Gap 27.1 H, BUN 14, Creatinine 1.20 H, Estimated Creat Clear 46, Estimated GFR 45 L, Est GFR ( Amer) 54 L, Glucose 128 H, Calcium 9.2, Total Bilirubin 0.5, AST 35, ALT 35, Alkaline Phosphatase 113, Troponin I 0.09 H , Total Protein 7.9, Albumin 3.5, Globulin 4.4 H, Albumin/Globulin Ratio 0.8 L, Carbamazepine 0.5 L, Phenobarbital 16.0 I & O for Last 24 hours: Intake & Output 0806/19/19 06/20/19 06/21/19 23:59 23:59 23:59 23:59 Weight 634.122 kg - Constitutional no acute distress, chronically ill appearing Comments: non verbal - *Routine HEENT Exam Head: Present: normocephalic, atraumatic Eye: Present: EOMI, PERRL (bilateral conjunctivitis with erythematous eyelids and discharge.) ENT: Present: mucous membranes moist Comments: white plaque on tongue, tender to palpation, consistent with thrush. Edentulous - *Routine Neck Exam Present: supple. Absent: JVD - *Routine Respiratory Exam Present: CTA bilaterally, wheezes. Absent: crackles - *Routine Cardiovascular Exam Present: RRR, Normal S1. Absent: murmur - *Routine Abdominal Exam Present: soft Comments: whinces with palpation in epigastric region, Normoactive BS. - *Routine Rectal Exam Patient deferred: visual exam - *Routine Exam Patient deferred: external exam - *Routine Extremities Exam Absent: cyanosis, clubbing, edema - *Routine Skin Exam Present: intact, pallor. Absent: cyanosis - *Routine Neurological Exam Present: alert non verbal, appears to answers answers with head nods. Assessment and Plan (1) Swallowing disorder Current visit: Yes Status: Acute Category: Medical Code(s): R13.10 - Dysphagia, unspecified (2) Elevated troponin Current visit: Yes Status: Acute Category: Medical Code(s): R74.8 - Abnormal levels of other serum enzymes (3) Hypernatremia Current visit: Yes Status: Acute Category: Medical Code(s): E87.0 - Hyperosmolality and hypernatremia (4) BETHANY (acute kidney injury) Current visit: No Status: Acute Category: Medical Code(s): N17.9 - Acute kidney failure, unspecified (5) Dehydration Current visit: No Status: Acute Category: Medical Code(s): E86.0 - Dehydration (6) Essential hypertension Current visit: No Status: Chronic Category: Medical Code(s): I10 - Essential (primary) hypertension (7) Seizure disorder Current visit: No Status: Chronic Category: Medical Code(s): G40.909 - Epilepsy, unspecified, not intractable, without status epilepticus - Assessment and plan all Dx Assessment and Plan for all problems:: Non verbal 68yo F with Hx of Sz disorder and CP who presented due to a fall, found to have BETHANY and electrolyte disturbances. Pt has been refusing to eat adn drink leading to lab abnormalities. Family and NH interested in G-tube placement to help with med administration and maintaining hydration. Pt has not bee worked up for inability to eat. Will pursue swallow study. Initiate Nystatin due to concern for thrush. Until 1 week ago, patient reportedly able to tolerate oral intake. Will work-up for dysphagia and pursue placement of G- tube if appropriate. Maintain Sz precautions. IV reydration. Monitor fro improvement in labs and Kidney function with labs in AM.
--- NOTE | 2019-06-22 07:14 | Progress Note ---
Internal Medicine - PN: Subj *Date: 06/22/19 *Time: 07:12 Interval history: Patient overnight had to be transferred to stepdown unit because of atrial fibrillation with rapid ventricular response with heart rates in the 170s. She responded very nicely to Cardizem intravenous infusion and 1 or 2 hours of Cardizem drip and this was able to be discontinued, 1 dose of p.o. Cardizem was given which the patient had no problem swallowing. This morning she is in sinus rhythm in the mid 60s. She reports that she is feeling better by head nod, reports that her mouth is less sore. Exam Vital signs and Labs for Last 24 Hours: Temp Pulse Resp BP Pulse Ox 98.8 F 99 H 16 176/51 H 96 06/22/19 00:43 06/22/19 04:00 06/21/19 19:45 06/22/19 04:00 06/22/19 04:09 Laboratory Results - last 24 hr 06/21/19 11:00: WBC 12.5 H, RBC 3.74 L, Hgb 11.2 L, Hct 33.7 L, MCV 90.0, MCH 29.9, MCHC 33.2, RDW 14.8, Plt Count 427 H, MPV 7.7, Neut % (Auto) 86.5 H, Lymph % (Auto) 7.6 L, [place] % (Auto) 5.0, Eos % (Auto) 0.4, Baso % (Auto) 0.5, Neut # (Auto) 10.8 H, Lymph # (Auto) 1.0, [place] # (Auto) 0.6, Eos # (Auto) 0.1, Baso # (Auto) 0.1, Total Counted 100, Neutrophils % (Manual) 87 H, Lymphocytes % (Manual) 10, Monocytes % (Manual) 3, Platelet Estimate Normal, Stomatocytes 1+ 06/21/19 11:05: Urine Color Yellow, Urine Appearance Clear, Urine pH 6.0, Ur Specific [place] 1.025, Urine Protein 2+, Urine Glucose (UA) Negative, Urine Ketones 3+, Urine Blood 2+, Urine Nitrate Negative, Urine Bilirubin 2+ A, Urine Urobilinogen 0.2, Ur Leukocyte Esterase Negative, Urine RBC 3-5, Urine WBC Occasional, Ur Squamous Epith Cells Occasional, Amorphous Sediment Trace, Urine Bacteria 1+ 06/21/19 11:15: Sodium 152 H*, Potassium 3.1 L, Chloride 108 H, Carbon Dioxide 20 L, Anion Gap 27.1 H, BUN 14, Creatinine 1.20 H, Estimated Creat Clear 46, Estimated GFR 45 L, Est GFR ( Amer) 54 L, Glucose 128 H, Calcium 9.2, Total Bilirubin 0.5, AST 35, ALT 35, Alkaline Phosphatase 113, Troponin I 0.09 H , Total Protein 7.9, Albumin 3.5, Globulin 4.4 H, Albumin/Globulin Ratio 0.8 L, Carbamazepine 0.5 L, Phenobarbital 16.0 06/21/19 16:50: Troponin I 0.10 H 06/21/19 20:22: Troponin I 0.14 H I & O for Last 24 hours: Intake & Output 06/19/19 06/20/19 06/21/19 06/22/19 11:59 11:59 11:59 11:59 Output Total 420 / 420 Balance -420 / -420 Weight 140 lb 148 lb 12.8 oz Narrative: Patient is pleasant. Able to communicate minimally with head nods and shakes. Acknowledges she is feeling better. Oropharynx is moist, significant thrush still visible. Lungs are clear bilaterally. Heart rate regular. Rate normal as noted above. Distal extremities with contractures but no skin breakdown. Abdomen soft. Assessment and Plan (1) Swallowing disorder Current visit: Yes Status: Acute Category: Medical Code(s): R13.10 - Dysphagia, unspecified (2) Elevated troponin Current visit: Yes Status: Acute Category: Medical Code(s): R74.8 - Abnormal levels of other serum enzymes (3) Hypernatremia Current visit: Yes Status: Acute Category: Medical Code(s): E87.0 - Hyperosmolality and hypernatremia (4) BETHANY (acute kidney injury) Current visit: No Status: Acute Category: Medical Code(s): N17.9 - Acute kidney failure, unspecified (5) Dehydration Current visit: No Status: Acute Category: Medical Code(s): E86.0 - D ehydration (6) Essential hypertension Current visit: No Status: Chronic Category: Medical Code(s): I10 - Essential (primary) hypertension (7) Seizure disorder Current visit: No Status: Chronic Category: Medical Code(s): G40.909 - Epilepsy, unspecified, not intractable, without status epilepticus (8) Atrial fibrillation with rapid ventricular response Current visit: Yes Status: Acute Category: Medical Code(s): I48.91 - Unspecified atrial fibrillation Plan will be to institute daily Cardizem therapy. Possibly due to electrolyte issues. Recheck elect lites today. Previous plan outlined in H&P will persist. Patient will be transferred back out of stepdown today.
[2019-06-22 07:29] LABS: Anion Gap 13.2 mEq/L (5-15); Calcium 8.3 mg/dL (8.5-10.1)
[2019-06-23 09:20] LABS: Anion Gap 9.9 mEq/L (5-15); Calcium 7.6 mg/dL (8.5-10.1)
--- NOTE | 2019-06-23 09:21 | Consult Report ---
*Admission Date: 06/21/19 *Reason for consult:: Inability to eat *History of present illness: Ms. Riggs is a 68-year-old female with history of cerebral palsy and debility who resides [facility]. She was recently admitted due to decreased p.o. intake and infection. Discharged on the third back to the detention. Presents to the ER today after falling and having concern for difference in pupillary constriction. Found to not have any head trauma in the ER however there is concern that she has not taken any p.o. intake in over a week now since prior to her previous admission. Family and detention are interested in having G-tube placed and would like for her to be assessed for this. Also found to have some electrolyte disturbances with hyperkalemia, mild BETHANY. Admitted to medicine for further management and work-up. Patient was admitted and started on medical therapy. She did undergo modified barium swallow which revealed no evidence of any aspiration with some stasis. She was diagnosed with thrush. Recommendations were to forego PEG tube placement but surgery was consulted for upper endoscopy to evaluate for possible underlying pathology such as esophageal candidiasis. Review of Systems - Review of Systems Review of systems:: unable to obtain [facility] History Medical History: Reports:: Anxiety, Congestive Heart Failure, Chronic Obstructive Pulmonary Disease (COPD), Congenital Heart Disease, Hyperlipidemia, Hypertension Denies:: Cancer, Diabetes Mellitus Type 1, Diabetes Mellitus Type 2, MRSA *Have you ever received a pneumonia vaccine?: Yes *Have you received a flu vaccine this season?: Yes Other Surgeries: Yes: Other Amputation: No - *Social History Educational Level: Attended Grade School Smoking Status: Never smoker Alcohol Intake: never *Occupational Status:: retired, disabled Housing: detention Household Members: none, other *Travel in the last 8 weeks: None - Psychiatric History Expresses thoughts of harming self/others: None Suicide Plan Description: No Plan Pschychiatric History:: Reports:: Anxiety Family Hx:: Unable to obtain [facility] Home Medications Medication Instructions Recorded Confirmed Type Amlodipine Besylate [Amlodipine 10 mg PO DAILY 07/28/18 06/21/19 History 10mg Tab] Atorvastatin Calcium [Atorvastatin 40 mg PO DAILY 07/28/18 06/21/19 History 40mg Tab] Loratadine [Claritin] 10 mg PO HS 07/28/18 06/21/19 History Omeprazole [Omeprazole 20mg 20 mg PO QODHS 07/28/18 06/21/19 History Capsule] Sertraline HCl [Zoloft] 100 mg PO DAILY 07/28/18 06/21/19 History carBAMazepine [carBAMazepine 200mg 400 mg PO BID 07/28/18 06/21/19 History Tablet] levETIRAcetam [Levetiracetam] 500 mg PO BID 07/28/18 06/21/19 History Acetaminophen [Tylenol 500mg 500 mg PO Q6HP PRN 08/26/18 06/21/19 History tablet] Lactulose [Lactulose 20gm/30ml 20 gm PO DAILYP PRN 08/26/18 06/21/19 History Oral Soln] Calcium Carbonate/Vitamin D3 1 each PO BID 05/06/19 06/21/19 History [Oyster Shell 250-Vit D3 125 Tb] Carboxymethyl/Gly/Poly80/Pf 1 drop OP BID 05/06/19 06/21/19 History [Refresh Optive Advanced Drops] Icosapent Ethyl [Vascepa] 2 gm PO BID 05/06/19 06/21/19 History Propylene Glycol/Peg 400 [Systane 2 drp OP HS 05/06/19 06/21/19 History Gel Eye Drops] Sennosides [Senna] 8.6 mg PO BID 05/06/19 06/21/19 History hydrOXYzine HCl [Hydroxyzine HCl] 25 mg PO TID 05/06/19 06/21/19 History Docusate Sodium [Colace 250mg 250 mg PO BID 05/07/19 06/21/19 History capsule] Vitamin B Complex Vit C No.3 [B 1 each PO HS 05/07/19 06/21/19 History Complex with Vitamin C] Lisinopril [Lisinopril 10mg Tab] 10 mg PO DAILY 06/21/19 06/21/19 History PHENobarbital [Phenobarbital] 64.8 mg PO HS 06/21/19 06/21/19 History Allergies Allergy/AdvReac Type Severity Reaction Status Date / Time latex Allergy Mild Unknown Verified 06/16/19 21:47 allergy reaction banana Allergy Unknown Unknown Verified 06/16/19 21:47 allergy reaction chocolate flavor Allergy Unknown Unknown Verified 06/16/19 21:47 allergy reaction Exam Vital signs and Labs for Last 24 Hours: Temp Pulse Resp BP Pulse Ox 98.1 F 73 17 140/72 94 L 06/23/19 08:00 06/23/19 08:00 06/23/19 08:00 06/23/19 08:00 06/23/19 08:00 I & O for Last 24 hours: Intake & Output 06/20/19 06/21/19 06/22/19 06/23/19 11:59 11:59 11:59 11:59 Intake Total 0 / 0 3834 / 3834 Output Total 420 / 420 1800 / 1800 Balance -420 / -420 2033 / 2033 Weight 140 lb 148 lb 12.8 oz 144 lb 7 oz - *Routine Respiratory Exam Present: diminished air movement - *Routine Cardiovascular Exam Present: RRR - *Routine Abdominal Exam Present: soft Results - Labs 06/21/19 11:00 06/23/19 08:40 Assessment and Plan (1) Swallowing disorder Current visit: Yes Status: Acute Category: Medical Code(s): R13.10 - Dysphagia, unspecified (2) Elevated troponin Current visit: Yes Status: Acute Category: Medical Code(s): R74.8 - Abnormal levels of other serum enzymes (3) Hypernatremia Current visit: Yes Status: Acute Category: Medical Code(s): E87.0 - Hyperosmolality and hypernatremia (4) BETHANY (acute kidney injury) Current visit: No Status: Acute Category: Medical Code(s): N17.9 - Acute kidney failure, unspecified (5) Dehydration Current visit: No Status: Acute Category: Medical Code(s): E86.0 - Dehydration (6) Essential hypertension Current visit: No Status: Chronic Category: Medical Code(s): I10 - Es sential (primary) hypertension (7) Seizure disorder Current visit: No Status: Chronic Category: Medical Code(s): G40.909 - Epilepsy, unspecified, not intractable, without status epilepticus (8) Atrial fibrillation with rapid ventricular response Current visit: Yes Status: Acute Category: Medical Code(s): I48.91 - Unspecified atrial fibrillation - Assessment and plan all Dx Assessment and Plan for all problems:: Plan for upper endoscopy to evaluate underlying pathology such as esophageal candidiasis.
--- NOTE | 2019-06-23 10:33 | Procedure Note ---
- Procedure: Date: 06/23/19 Procedure Performed:: Esophagogastroduodenoscopy with biopsies Indications:: Ms. Riggs is a 68-year-old female with history of cerebral palsy and debility who resides [facility]. She was recently admitted due to decreased p.o. intake and infection. Discharged on the third back to the [place] [facility]. Presents to the ER today after falling and having concern for difference in pupillary constriction. Found to not have any head trauma in the ER however there is concern that she has not taken any p.o. intake in over a week now since prior to her previous admission. Family and [place] [facility] are interested in having G-tube placed and would like for her to be assessed for this. Also found to have some electrolyte disturbances with hyperkalemia, mild BETHANY. Admitted to medicine for further management and work-up. Patient was admitted and started on medical therapy. She did undergo modified barium swallow which revealed no evidence of any aspiration with some stasis. She was diagnosed with thrush. Recommendations were to forego PEG tube placement but surgery was consulted for upper endoscopy to evaluate for possible underlying pathology such as esophageal candidiasis. Performing Provider:: Nick Griffiths MD Referring Provider:: Edy Fletcher MD Sedation:: Propofol Procedure:: Consent was obtained. Patient was taken to endoscopy procedure room. She was positioned in lateral decubitus position. Adequate intravenous sedation was achieved with anesthesia titration of propofol. Olympus endoscope was inserted via the oropharynx and advanced through the esophagus which appeared grossly normal. Stomach was cannulated and insufflated. Retroflexion revealed no evidence of any appreciable hiatal hernia. There was only some minuscule patchy prepyloric gastritis. Pylorus was traversed. There is minimal mild nonerosive duodenitis within the duodenal bulb. Overall duodenum appeared relatively unremarkable. Endoscope was withdrawn into the stomach and gastric antral mucosal biopsy was obtained for CLOtest for H. pylori. Endoscope was withdrawn into the distal esophagus and a couple biopsies were obtained at the gastroesophageal junction. A couple of distal esophageal biopsies were obtained. Endoscope was withdrawn. Findings:: Relatively unremarkable esophagogastroduodenoscopy with only very minimal prepyloric nonerosive gastritis and nonerosive duodenitis. No evidence of any endoscopically appreciable esophagitis. Recommendations:: Continue expectant medical management Complications:: None Estimated blood obtained (mL): 1
--- NOTE | 2019-06-23 10:42 | Progress Note ---
[facility] Anesthesia Checklist - Patient Identification Patient Identification: Arm Band - Structural Data Admitted From: Inpatient Planned Operative Procedure/s: egd Consent for Planned Operative Procedure(s) Verified: Yes Verified Documents: Surgical Consent, History and Physical - NPO Status Verified Time NPO: 00:00 - Airway Assessment Dentition: Edentulous - Anesthesia Plan Anesthesia Risk discussed: Yes Anesthesia Plan: Verified ASA Class: III Anesthesia Type: MAC [facility] History I have reviewed the patient's past medical history: Yes Medical History: Reports:: Anxiety, Congestive Heart Failure, Chronic Obstructive Pulmonary Disease (COPD), Congenital Heart Disease, Hyperlipidemia, Hypertension Denies:: Cancer, Diabetes Mellitus Type 1, Diabetes Mellitus Type 2, MRSA *Have you ever received a pneumonia vaccine?: Yes *Have you received a flu vaccine this season?: Yes Other Surgeries: Yes: Other Amputation: No - *Social History Educational Level: Attended Grade School Smoking Status: Never smoker Alcohol Intake: never Substance Use Type: denies use *Occupational Status:: retired, disabled Housing: residential Household Members: none, other *Travel in the last 8 weeks: None - Psychiatric History Expresses thoughts of harming self/others: None Suicide Plan Description: No Plan Pschychiatric History:: Reports:: Anxiety Family Hx:: Unable to obtain
--- NOTE | 2019-06-23 13:46 | Progress Note ---
Internal Medicine - PN: Subj *Date: 06/23/19 *Time: 08:30 Interval history: Ms. Riggs is remained hemodynamically stable for the past 24 hours. Electrolytes this morning on labs are normalized with improved kidney function. At this time she is tolerating p.o. meds. Has been assessed by speech and passed swallow study. Is scheduled to go for an EGD today to assess for any esophageal pathology. Ate a few bites of one meal yesterday but otherwise refusing dinner last night, and breakfast this morning. Denies with head- nodding, nausea. Open eyes to verbal stimuli on exam and responded with head nods this morning. Exam Vital signs and Labs for Last 24 Hours: Temp Pulse Resp BP Pulse Ox 98.1 F 90 18 128/72 99 06/23/19 10:30 06/23/19 12:00 06/23/19 10:50 06/23/19 10:50 06/23/19 10:50 Laboratory Results - last 24 hr 06/23/19 08:40: Sodium 144, Potassium 3.9 D, Chloride 109 H, Carbon Dioxide 29, Anion Gap 9.9, BUN 5 L D, Creatinine 0.81 D, Estimated Creat Clear 57, Estimated GFR 71, Est GFR ( Amer) 86 D, Glucose 141 H, Calcium 7.6 L I & O for Last 24 hours: Intake & Output 06/20/19 06/21/19 06/22/19 06/23/19 23:59 23:59 23:59 23:59 Intake Total 2256 / 2256 1578 / 1578 Output Total 1420 / 1420 800 / 800 Balance 836 / 836 778 / 778 Weight 63.276 kg 67.495 kg 65.516 kg Narrative: Patient is pleasant. Able to communicate minimally with head nods and shakes. Oropharynx is moist, thrush still visible. Eyes without conjunctivitis however does have mild erythema of bilateral eyelids, some scant crusting bilaterally Lungs are clear bilaterally. Heart rate regular. Rate normal as noted above. Distal extremities with contractures but no skin breakdown. Abdomen soft, bowel sounds active. Assessment and Plan (1) Swallowing disorder Current visit: Yes Status: Acute Category: Medical Code(s): R13.10 - Dysphagia, unspecified (2) Elevated troponin Current visit: Yes Status: Acute Category: Medical Code(s): R74.8 - Abnormal levels of other serum enzymes (3) Hypernatremia Current visit: Yes Status: Acute Category: Medical Code(s): E87.0 - Hyperosmolality and hypernatremia (4) BETHANY (acute kidney injury) Current visit: No Status: Acute Category: Medical Code(s): N17.9 - Acute kidney failure, unspecified (5) Dehydration Current visit: No Status: Acute Category: Medical Code(s): E86.0 - Dehydration (6) Essential hypertension Current visit: No Status: Chronic Category: Medical Code(s): I10 - Essential (primary) hypertension (7) Seizure disorder Current visit: No Status: Chronic Category: Medical Code(s): G40.909 - Epilepsy, unspecified, not intractable, without status epilepticus (8) Atrial fibrillation with rapid ventricular response Current visit: Yes Status: Acute Category: Medical Code(s): I48.91 - Unspecified atrial fibrillation - Assessment and plan all Dx Assessment and Plan for all problems:: Ms. Riggs remains hemodynamically stable. Tolerating little bits of p.o. intake with fair tolerance of her oral medications. Labs normalizing. Assessment so far has shown no abnormalities or inability to eat. However continues to de smyth food for unclear reasons. Attempted to contact family and primary care this afternoon. Unable to reach primary care physician (Dr. Vu) due to his office being closed. Tried to contact Maritza HESS. Left message with Chris's Number. At this time, has been shows through testing that she has the ability to eat, however she is not eating due to behavioral reasons yet identified. [facility] was concerned for neurologic disorder and at this time we do not have neurology as an inpatient service. Patient is hemodynamically stable. Labs have normalized. However, goals of care need to be discussed with next of kin prior to determining next steps including but not limited to transferring back to intermediate with outpatient neurology assessment, attempting to transfer for inpatient neurology assessment, G-tube placement, NG for short-term nutrition and further management (however this complicates transfer back to intermediate).
[2019-06-24 06:52] LABS: Basophils # 0.1 K/mm3 (0-0.2); Basophils % 0.6 % (0.1-2.0); Eosinophils # 0.3 K/mm3 (0.0-0.4); Eosinophils % 3.1 % (0.1-12.0); Hematocrit 33.3 % (37.0-47.0); Hemoglobin 11.1 g/dL (12.2-16.2); Lymphocytes # 1.7 K/mm3 (0.7-4.5); Mean Corpuscular HGB Conc 33.2 g/dL (31.8-35.4); Mean Corpuscular Volume 90.9 fl (81-99); Mean Platelet Volume 7.9 fl (7.4-10.4); Monocytes # 0.7 K/mm3 (0.1-1.0); Neutrophils # 7.1 K/mm3 (1.8-7.8); Neutrophils % 72.3 % (37.0-80.0); Platelet Count 387 K/mm3 (142-424); Red Blood Count 3.66 M/mm3 (4.20-5.40); Red Cell Distribution Width 15.7 % (11.5-17.5); White Blood Count 9.8 K/mm3 (4.8-10.8)
--- NOTE | 2019-06-24 08:41 | Progress Note ---
Internal Medicine - PN: Subj *Date: 06/24/19 *Time: 08:33 Interval history: Ms. Combs continues to decline p.o. nutrition. At this point she has been worked up extensively with swallow study, speech eval, EGD and found to have no structural or physiologic inability to eat. She is taking medications but refusing nutrition. Offered multiple different types of nutrition including ice cream, sodas, and other treats last night with refusal to trial any of them. Patient remains hemodynamically stable, slight elevation in blood pressure last night requiring 1 dose of hydralazine. Patient's labs have normalized as of this morning. Remains afebrile. Difficult to assess review of systems due to somnolence this morning and refusal to eat Exam Vital signs and Labs for Last 24 Hours: Temp Pulse Resp BP Pulse Ox 98.2 F 121 H 20 154/78 H 98 06/24/19 03:00 06/24/19 03:00 06/24/19 03:00 06/24/19 03:00 06/24/19 03:00 Laboratory Results - last 24 hr 06/23/19 08:40: Sodium 144, Potassium 3.9 D, Chloride 109 H, Carbon Dioxide 29, Anion Gap 9.9, BUN 5 L D, Creatinine 0.81 D, Estimated Creat Clear 57, Estimated GFR 71, Est GFR ( Amer) 86 D, Glucose 141 H, Calcium 7.6 L 06/24/19 06:12: WBC 9.8, RBC 3.66 L, Hgb 11.1 L, Hct 33.3 L, MCV 90.9, MCH 30.2, MCHC 33.2, RDW 15.7, Plt Count 387, MPV 7.9, Neut % (Auto) 72.3, Lymph % (Auto) 17.0, [place] % (Auto) 7.0, Eos % (Auto) 3.1, Baso % (Auto) 0.6, Neut # (Auto) 7.1, Lymph # (Auto) 1.7, [place] # (Auto) 0.7, Eos # (Auto) 0.3, Baso # (Auto) 0.1 I & O for Last 24 hours: Intake & Output 06/21/19 06/22/19 06/23/19 06/24/19 23:59 23:59 23:59 23:59 Intake Total 2256 / 2256 1578 / 1578 3138 / 3138 Output Total 1420 / 1420 2200 / 2200 1000 / 1000 Balance 836 / 836 -622 / -622 2138 / 2138 Weight 63.276 kg 67.495 kg 65.516 kg 67.67 kg Assessment and Plan (1) Swallowing disorder Current visit: Yes Status: Acute Category: Medical Code(s): R13.10 - Dysphagia, unspecified (2) Elevated troponin Current visit: Yes Status: Acute Category: Medical Code(s): R74.8 - Abnormal levels of other serum enzymes (3) Hypernatremia Current visit: Yes Status: Acute Category: Medical Code(s): E87.0 - Hyperosmolality and hypernatremia (4) BETHANY (acute kidney injury) Current visit: No Status: Acute Category: Medical Code(s): N17.9 - Acute kidney failure, unspecified (5) Dehydration Current visit: No Status: Acute Category: Medical Code(s): E86.0 - Dehydration (6) Essential hypertension Current visit: No Status: Chronic Category: Medical Code(s): I10 - Essential (primary) hypertension (7) Seizure disorder Current visit: No Status: Chronic Category: Medical Code(s): G40.909 - Epilepsy, unspecified, not intractable, without status epilepticus (8) Atrial fibrillation with rapid ventricular response Current visit: Yes Status: Acute Category: Medical Code(s): I48.91 - Unspecified atrial fibrillation - Assessment and plan all Dx Assessment and Plan for all problems:: At this time Ms. Riggs's medical conditions leading to admission have resolved. Her electrolytes have been normalized through aggressive IV repletion and her kidney function is back to normal through aggressive IV rehydration. She is taking oral medications but not taking p.o. nutrition or fluids. Contacted patient's POA, Maritza Perez, this morning and had extensive discussion about patient's current clinical condition, her decline over the past month, and goals of care moving forward. He was brought to our attention that the patient had a family member a little over a month ago which may be a precipitating incident to her decline and refusal to eat/drink. We discussed measures including placement of a nasogastric tube, placement of a G-tube, assisted feeding, or transitioning to hospice care.
[2019-06-24 09:25] LABS: Albumin Level 2.7 gm/dL (3.4-5.0); Albumin/Globulin Ratio 0.8 (1.1-1.8); Anion Gap 14.2 mEq/L (5-15); Bilirubin,Total 0.3 mg/dL (0.2-1.0); Globulin 3.6 gm/dl (1.3-3.2); Total Protein,Serum 6.3 gm/dL (6.4-8.2)
[2019-06-24 09:35] LABS: Calcium 7.8 mg/dL (8.5-10.1)
--- NOTE | 2019-06-24 10:09 | Discharge Summary ---
General - General Admission date:: 06/21/19 Discharge date: 06/24/19 HPI HPI: Ms. Riggs is a 68-year-old female with history of cerebral palsy and debility who resides [facility]. She was recently admitted due to decreased p.o. intake and infection. Discharged on the third back to the assisted. Presents to the ER today after falling and having concern for difference in pupillary constriction. Found to not have any head trauma in the ER however there is concern that she has not taken any p.o. intake in over a week now since prior to her previous admission. Family and assisted are interested in having G-tube placed and would like for her to be assessed for this. Also found to have some electrolyte disturbances with hyperkalemia, mild BETHANY. Admitted to medicine for further management and work-up. Hospital Course Hospital Course: Over the course of admission, Ms. Riggs was worked up for initial concern for trauma in the ER and found to have no abnormal intracranial pathology. She was initiated on IV fluids and work-up was started for possible G-tube placement. Her kidney function has normalized. Her electrolytes have normalized. Work-up consisting of speech evaluation, swallow study, EGD have all shown normal physiology and jordi ability to swallow without concern for aspiration. Patient has tolerated most of her medications with good compliance. When it comes to meals she has refused to eat. She has been offered multiple different types of nutrition including ice cream, sodas, and other treats during admission with no interest in eating, and refusal to trial any of them. She is remained hemodynamically stable, no jordi episodes of seizure activity. Has had some labile blood pressure however response to medications has been appropriate. Extensive discussion was had with family today, her POA Ms. Maritza Perez. We discussed the risks and benefits of possible G-tube placement versus hospice care with continued trial of assisted eating. Decision was made that a G-tube would have more risk than benefit, cause pain, and not improve quality of life. Ms. Perez understands that transitioning to hospice and continuing to push p.o. nutrition will likely shorten the patient's life if she continues to refuse nutrition. If she does not drink or eat she will again develop and it acute kidney injury, electrolyte disturbances, and would have weeks to months to live at best. No further aggressive measures or invasive measures consisting of G- tube placement are within the goals of care for the patient per the POA. Will pursue hospice and quality of life goals of care. At this time patient is medically stable for discharge back to her assisted. Given her persisting debility, her intellectual debility,her recurrent BETHANY, multiple comorbidities, and acute decline, will pursue hospice care. Objective Vital signs: Temp Pulse Resp BP Pulse Ox 98.2 F 121 H 20 154/78 H 98 06/24/19 03:00 06/24/19 03:00 06/24/19 03:00 06/24/19 03:00 06/24/19 03:00 Narrative: Patient is pleasant, awake on exam, not answering questions today. Still rubbi ng her eyes as she just received eyedrops. Oropharynx is moist, thrush improving. Eyes without conjunctivitis however does have mild erythema of bilateral eyelids with interval improvement, some scant crusting bilaterally Lungs are clear bilaterally. Heart rate regular. No murmur. Skin pale, at baseline, pulses 2+ distally Distal extremities with contractures but no skin breakdown. Abdomen soft, nontender, bowel sounds active. Results Labs on day of discharge: Labs from last 24 hours 06/24/19 06/24/19 08:36 06:12 WBC 9.8 RBC 3.66 L Hgb 11.1 L Hct 33.3 L MCV 90.9 MCH 30.2 MCHC 33.2 RDW 15.7 Plt Count 387 MPV 7.9 Neut % (Auto) 72.3 Lymph % (Auto) 17.0 Luna % (Auto) 7.0 Eos % (Auto) 3.1 Baso % (Auto) 0.6 Neut # (Auto) 7.1 Lymph # (Auto) 1.7 Luna # (Auto) 0.7 Eos # (Auto) 0.3 Baso # (Auto) 0.1 Sodium 140 Potassium 5.2 H D Chloride 108 H Carbon Dioxide 23 D Anion Gap 14.2 BUN 3 L D Creatinine 0.72 Estimated Creat Clear 59 Estimated GFR 81 Est GFR ( Amer) 98 Glucose 126 H Calcium 7.8 L Total Bilirubin 0.3 AST 36 ALT 47 D Total Protein 6.3 L Albumin 2.7 L Globulin 3.6 H Albumin/Globulin Ratio 0.8 L DS: Diagnosis - Discharge Diagnosis (1) Swallowing disorder Status: Acute Problem details: At this time Ms. Riggs's medical conditions leading to admission have resolved. Her electrolytes have been normalized through aggressive IV repletion and her kidney function is back to normal through aggressive IV rehydration. She is briseida ing oral medications but not taking p.o. nutrition or fluids. Contacted patient's POA, Maritza Perez, this morning and had extensive discussion about patient's current clinical condition, her decline over the past month, and goals of care moving forward. He was brought to our attention that the patient had a family member a little over a month ago which may be a precipitating incident to her decline and refusal to eat/drink. We discussed measures including placement of a nasogastric tube, placement of a G-tube, assisted feeding, or transitioning to hospice care. (2) Elevated troponin Status: Acute (3) Hypernatremia Status: Resolved (4) BETHANY (acute kidney injury) Status: Resolved (5) Dehydration Status: Resolved (6) Essential hypertension Status: Chronic (7) Seizure disorder Status: Chronic (8) Atrial fibrillation with rapid ventricular response Status: Acute Discharge Plan - Patient Discharge Instructions Patient Instructions: Cardiac Troponin, DI for Hypokalemia, DI for Hypernatremia - Follow up Plan Disposition: er Intermediate Care Fac Home Medications: Home Medications Medication Instructions Recorded Confirmed Type Amlodipine Besylate [Amlodipine 10 mg PO DAILY 07/28/18 06/21/19 History 10mg Tab] Atorvastatin Calcium [Atorvastatin 40 mg PO DAILY 07/28/18 06/21/19 History 40mg Tab] Loratadine [Claritin] 10 mg PO HS 07/28/18 06/21/19 History Omeprazole [Omeprazole 20mg 20 mg PO QODHS 07/28/18 06/21/19 History Capsule] Sertraline HCl [Zoloft] 100 mg PO DAILY 07/28/18 06/21/19 History carBAMazepine [carBAMazepine 200mg 400 mg PO BID 07/28/18 06/21/19 History Tablet] levETIRAcetam [Levetiracetam] 500 mg PO BID 07/28/18 06/21/19 History Acetaminophen [Tylenol 500mg 500 mg PO Q6HP PRN 08/26/18 06/21/19 History tablet] Lactulose [Lactulose 20gm/30ml 20 gm PO DAILYP PRN 08/26/18 06/21/19 History Oral Soln] Calcium Carbonate/Vitamin D3 1 each PO BID 05/06/19 06/21/19 History [Oyster Shell 250-Vit D3 125 Tb] Carboxymethyl/Gly/Poly80/Pf 1 drop OP BID 05/06/19 06/21/19 History [Refresh Optive Advanced Drops] Icosapent Ethyl [Vascepa] 2 gm PO BID 05/06/19 06/21/19 History Propylene Glycol/Peg 400 [Systane 2 drp OP HS 05/06/19 06/21/19 History Gel Eye Drops] Sennosides [Senna] 8.6 mg PO BID 05/06/19 06/21/19 History hydrOXYzine HCl [Hydroxyzine HCl] 25 mg PO TID 05/06/19 06/21/19 History Docusate Sodium [Colace 250mg 250 mg PO BID 05/07/19 06/21/19 History capsule] Vitamin B Complex Vit C No.3 [B 1 each PO HS 05/07/19 06/21/19 History Complex with Vitamin C] Lisinopril [Lisinopril 10mg Tab] 10 mg PO DAILY 06/21/19 06/21/19 History PHENobarbital [Phenobarbital] 64.8 mg PO HS 06/21/19 06/21/19 History Prescriptions/Medication Reconciliation: New dilTIAZem HCl [Cardizem 180mg ER capsule] 180 mg PO DAILY cap.er.24h Nystatin [Nystatin Susp 500,000 Units/5mL Udc] 500,000 unit PO QID udc Continued Sertraline HCl [Zoloft] 100 mg PO DAILY Loratadine [Claritin] 10 mg PO HS levETIRAcetam [Levetiracetam] 500 mg PO BID Atorvastatin Calcium [Atorvastatin 40mg Tab] 40 mg PO DAILY Acetaminophen [Tylenol 500mg tablet] 500 mg PO Q6HP PRN PRN Reason: fever or pain Icosapent Ethyl [Vascepa] 2 gm PO BID Sennosides [Senna] 8.6 mg PO BID Propylene Glycol/Peg 400 [Systane Gel Eye Drops] 2 drp OP HS Docusate Sodium [Colace 250mg capsule] 250 mg PO BID PHENobarbital [Phenobarbital] 64.8 mg PO HS Amlodipine Besylate [Amlodipine 10mg Tab] 10 mg PO DAILY Omeprazole [Omeprazole 20mg Capsule] 20 mg PO QODHS carBAMazepine [carBAMazepine 200mg Tablet] 400 mg PO BID Lactulose [Lactulose 20gm/30ml Oral Soln] 20 gm PO DAILYP PRN PRN Reason: Constipation Calcium Carbonate/Vitamin D3 [Oyster Shell 250-Vit D3 125 Tb] 1 each PO BID Carboxymethyl/Gly/Poly80/Pf [Refresh Optive Advanced Drops] 1 drop OP BID hydrOXYzine HCl [Hydroxyzine HCl] 25 mg PO TID Vitamin B Complex Vit C No.3 [B Complex with Vitamin C] 1 each PO HS Lisinopril [Lisinopril 10mg Tab] 10 mg PO DAILY - Problem Reconciliation Problems Reviewed?: Yes
== END 2019-06-24 12:52 ==
LOC: 2ND 09:46 → ER 09:46 → 2ND 14:50 → ICU 19:11 → 2ND 06-22 08:37
PROVIDERS: ADMIT Internal Medicine Adolescent Medicine; ATTEND Internal Medicine Adolescent Medicine
CPT/HCPCS: 36415; 70371; 70450; 71010; 71045; 72125; 72170; 74000; 74018; 80048; 80053; 80156; 80184; 81001; 84484; 85007; 85025; 87339; 88305; 92611; 93005; 99284; G0378